=== PATIENT | male | born 1945 | race Caucasian/White ===

== ENCOUNTER 2016-08-15 14:57 | Inpatient (IN) ==
--- NOTE | 2016-08-15 15:44 | Emergency Department Note ---
Disposition Clinical Impression: Pericardial effusion Disposition: Admitted As Inpatient Condition: Good General Adult HPI - General Chief complaint: ED Arrhythmia/Palpitations Stated complaint: AICD acting funny Time Seen by Provider: 08/15/16 15:07 Source: patient, EMS Mode of arrival: EMS Limitations: no limitations Nursing Notes Reviewed: Yes Vital Signs Reviewed: Yes - History of Present Illness HPI Narrative: 71-year-old male history of CHF, CAD, AICD placement in June 2015, hypertension who presents to the ER from his primary care provider for waking. Patient reports that he has had a 5 pound weight gain over the last week. He denies any symptoms at home including chest pain, shortness of breath, palpitations, lightheadedness or dizziness. He was seen at his PCP today where they ordered a stat echo, chest x-ray and labs. Patient was sent over after this. He is not sure why he was sent over. He reports compliance with his medications. No other complaints. Pt Subjective Complaint: Pericardial effusion Onset (ago): [employer] Radiation: non-radiation Pain Scale: 0 Improves with: nothing Worsens with: nothing Associated symptoms: Reports: denies other symptoms Treatments Prior to Arrival: none - Related Data Home Medications Medication Instructions Recorded Confirmed Apixaban [Eliquis] 5 mg PO BID 08/15/16 08/15/16 Carbamide Peroxide [Ear Wax Drops] 4 drop BOTH EARS DAILY 08/15/16 08/15/16 Cholecalciferol (D-3) [Vitamin D] 1,000 unit PO DAILY 08/15/16 08/15/16 Furosemide [Lasix] 60 mg PO DAILY 08/15/16 08/15/16 Gabapentin [Neurontin] 300 mg PO TID 08/15/16 08/15/16 GlipiZIDE [Glipizide] 10 mg PO BID 08/15/16 08/15/16 Insulin Glargine,Hum.rec.anlog 15 unit SQ HS 08/15/16 08/15/16 [Lantus Solostar] Metformin HCl [Glucophage] 1,000 mg PO BID 08/15/16 08/15/16 Methocarbamol [Robaxin] 500 mg PO QID PRN 08/15/16 08/15/16 Metoprolol XL (24 HR) Succ [Toprol 25 mg PO DAILY 08/15/16 08/15/16 XL] Mineral Oil/Petrolatum,White 1 appl TP BID PRN 08/15/16 08/15/16 [Eucerin Creme] Ramipril [Altace] 5 mg PO DAILY 08/15/16 08/15/16 Rosuvastatin [Crestor] 10 mg PO HS 08/15/16 08/15/16 Spironolactone [Aldactone] 25 mg PO DAILY 08/15/16 08/15/16 Allergies Allergy/AdvReac Type Severity Reaction Status Date / Time No Known Allergies Allergy Verified 08/15/16 15:08 All systems ED: reviewed and negative except as stated. Constitutional: Denies: fever Cardiovascular: Denies: chest pain, palpitations Respiratory: Denies: cough, dyspnea Gastrointestinal: Denies: abdominal pain, nausea, vomiting Past Medical History - Past Medical History Attestation: Yes The following information was validated with the patient. Source: patient Medical history: Reports: atrial fibrillation, CHF, coronary artery disease, diabetes, hypertension, myocardial infarction Surgical history: Reports: AICD, pacemaker Psychiatric history: Reports: anxiety, panic disorder, PTSD - Social History Smoking Status: Former smoker Physical Exam - General Limitations: no limitations General appearance: alert, in no apparent distress - Head Head exam: atraumatic, normocephalic, normal inspection - Eye Eye exam: Present: normal appearance, EOMI - ENT ENT exam: normal exam - Neck Neck exam: Present: normal inspection - Chest Chest inspection: Present: normal inspection, symmetric chest wall rise - Respiratory Respiratory exam: Present: normal lung sounds bilaterally - Cardiovascular Cardiovascular exam: Present: regular rate, normal rhythm, normal heart sounds - Abdominal Exam Abdominal exam: Present: soft, Non-Tender. Absent: tenderness - Extremities Exam Extremities exam: Present: normal inspection, full ROM - Expanded Upper Extremity Exam Shoulder exam: Present: normal inspection, full ROM Arm exam: Present: normal inspection, full ROM Elbow exam: Present: normal inspection, full ROM Forearm/Wrist exam: Present: normal inspection, full ROM Hand exam: Present: normal inspection, full ROM - Expanded Lower Extremity Exam Hip/Pelvis exam: Present: normal inspection, full ROM Upper leg exam: Present: normal inspection, full ROM Knee exam: Present: normal inspection, full ROM Lower leg exam: Present: normal inspection, full ROM Ankle exam: Present: normal inspection, full ROM Foot/toe exam: Present: normal inspection, full ROM - Neurological Exam Neurological exam: Present: alert - Psychiatric Psychiatric exam: Present: normal affect, normal mood - Skin Skin exam: Present: warm, dry, intact, normal color Course Course Narrative: Patient seen and examined. Vital signs reviewed. I reviewed [facility] which shows a large pericardial effusion but no sonographic evidence of tamponade. This appears new from his previous echo performed on 06/17. We will discuss with the patient's fireproof door maker for further recommendation and possible transfer. She is hemodynamically stable. - Consultations Consultation #1: I spoke with the patient's fireproof door maker at [facility], Dr. Joe. They report that the patient did not have an effusion when he was discharged from their facility. They report that they do not have interventional radiology there if he would require pericardiocentesis. They recommended admission to the hospital for serial echoes and IV diuresis with the potential need for pericardiocentesis. He gave me his personal cell phone number and requests he may be reached at any time if needed. Personal cell [phone] 1calendar [phone] Consultation #2: I spoke with the on-call fireproof door maker Dr. Cm who agrees with admission to the hospital for serial echoes. He reports a hold all diuretic medications as well as antihypertensives given the patient's findings until he can repeat an echo. Reports to admit to medicine. Vital Signs Temperature 98.0 F 08/15/16 15:02 Pulse Rate 80 08/15/16 15:02 Respiratory Rate 16 08/15/16 15:02 Blood Pressure 175/109 08/15/16 15:02 O2 Sat by Pulse Oximetry 96 08/15/16 15:02 Temperature 97.9 F 08/17/16 07:12 Pulse Rate 80 08/17/16 07:12 Respiratory Rate 16 08/17/16 07:12 Blood Pressure 123/75 08/17/16 07:12 O2 Sat by Pulse Oximetry 95 08/17/16 07:45 Oxygen Delivery Oxygen Delivery Room Air Medical Decision Making - MDM Narrative Medical decision making narrative: 71-year-old male presents to the ER after abnormal echo at his PCP. Reports a history of CHF but has had a 5 pound weight gain over the last week. He is compliant with his Lasix. He denies any symptoms and feels his usual self.. Hemodynamically stable. Echo reviewed which shows a large pericardial effusion with EF of 35-40%. Case was discussed with the patient's fireproof door maker at [facility] as well as cardiology here. Recommends to admit to the hospitalist for further management and they will see him in consult. Patient admitted to the hospitalist service. - Lab Data Lab results reviewed: Yes I reviewed the patient's lab results. Result diagrams: 08/17/16 05:51 08/17/16 05:51 Lab Results 08/15/16 08/15/16 08/15/16 Range/Units 17:35 17:35 17:35 WBC 6.5 (4.3-11.1) K/mcL RBC 4.73 (4.19-5.50) M/mcL Hgb 12.3 L (12.9-16.9) g/dL Hct 39.8 (37.5-50.1) % MCV 84.1 (83.0-100.0) fL MCH 26.0 L (28.0-33.3) pg MCHC 30.9 L (31.6-35.5) g/dL RDW 15.1 H (11.5-14.5) % Plt Count 174 (140-400) K/mcL MPV 9.8 (9.4-12.4) fL Immature Gran % 0.8 (0-4) % Seg Neutrophils % 63.8 % Lymphocytes % 26.0 % Monocytes % 7.8 % Eosinophils % 1.4 % Basophils % 0.2 % Neutrophils # 4.2 (1.6-8.9) K/mcL Lymphocytes # 1.7 (0.6-4.6) K/mcL Monocytes # 0.5 (0.0-1.3) K/mcL Eosinophils # 0.1 (0.0-0.6) K/mcL Basophils # 0.0 (0.0-0.2) K/mcL Sodium 141 (136-145) mEq/L Potassium 4.7 H (3.5-4.5) mEq/L Chloride 99 (98-109) mEq/L Carbon Dioxide 32 H (19-29) mEq/L BUN 32 H (8-26) mg/dL Creatinine 1.32 H (0.72-1.25) mg/dL Est GFR ( Amer) > 60 (> 60) Est GFR (Non-Af Amer) 54 L (> 60) BUN/Creatinine Ratio 24 (6-26) Glucose 105 H (70-99) mg/dL POC Glucose (58-89) Calculated Osmolality 299 (280-300) Calcium 10.2 (8.6-10.8) mg/dL Phosphorus (2.3-4.7) mg/dL Magnesium (1.6-2.6) mg/dL Creatine Kinase 109 (30-200) Units/L Troponin I 0.02 (0-0.03) ng/mL B-Natriuretic Peptide (0-100) pg/mL 08/15/16 08/15/16 08/15/16 Range/Units 17:35 17:40 20:38 WBC (4.3-11.1) K/mcL RBC (4.19-5.50) M/mcL Hgb (12.9-16.9) g/dL Hct (37.5-50.1) % MCV (83.0-100.0) fL MCH (28.0-33.3) pg MCHC (31.6-35.5) g/dL RDW (11.5-14.5) % Plt Count (140-400) K/mcL MPV (9.4-12.4) fL Immature Gran % (0-4) % Seg Neutrophils % % Lymphocytes % % Monocytes % % Eosinophils % % Basophils % % Neutrophils # (1.6-8.9) K/mcL Lymphocytes # (0.6-4.6) K/mcL Monocytes # (0.0-1.3) K/mcL Eosinophils # (0.0-0.6) K/mcL Basophils # (0.0-0.2) K/mcL Sodium (136-145) mEq/L Potassium (3.5-4.5) mEq/L Chloride (98-109) mEq/L Carbon Dioxide (19-29) mEq/L BUN (8-26) mg/dL Creatinine (0.72-1.25) mg/dL Est GFR ( Amer) (> 60) Est GFR (Non-Af Amer) (> 60) BUN/Creatinine Ratio (6-26) Glucose (70-99) mg/dL POC Glucose 108 H 98 H (58-89) Calculated Osmolality (280-300) Calcium (8.6-10.8) mg/dL Phosphorus (2.3-4.7) mg/dL Magnesium (1.6-2.6) mg/dL Creatine Kinase (30-200) Units/L Troponin I (0-0.03) ng/mL B-Natriuretic Peptide 143 H (0-100) pg/mL 08/16/16 08/16/16 08/16/16 Range/Units 04:15 04:15 08:11 WBC 7.3 (4.3-11.1) K/mcL RBC 4.65 (4.19-5.50) M/mcL Hgb 12.1 L (12.9-16.9) g/dL Hct 39.1 (37.5-50.1) % MCV 84.1 (83.0-100.0) fL MCH 26.0 L (28.0-33.3) pg MCHC 30.9 L (31.6-35.5) g/dL RDW 15.2 H (11.5-14.5) % Plt Count 172 (140-400) K/mcL MPV 9.9 (9.4-12.4) fL Immature Gran % 0.7 (0-4) % Seg Neutrophils % 63.7 % Lymphocytes % 25.6 % Monocytes % 8.7 % Eosinophils % 1.2 % Basophils % 0.1 % Neutrophils # 4.6 (1.6-8.9) K/mcL Lymphocytes # 1.9 (0.6-4.6) K/mcL Monocytes # 0.6 (0.0-1.3) K/mcL Eosinophils # 0.1 (0.0-0.6) K/mcL Basophils # 0.0 (0.0-0.2) K/mcL Sodium 141 (136-145) mEq/L Potassium 4.1 (3.5-4.5) mEq/L Chloride 100 (98-109) mEq/L Carbon Dioxide 31 H (19-29) mEq/L BUN 31 H (8-26) mg/dL Creatinine 1.33 H (0.72-1.25) mg/dL Est GFR ( Amer) > 60 (> 60) Est GFR (Non-Af Amer) 53 L (> 60) BUN/Creatinine Ratio 23 (6-26) Glucose 56 L (70-99) mg/dL POC Glucose 93 H (58-89) Calculated Osmolality 296 (280-300) Calcium 10.1 (8.6-10.8) mg/dL Phosphorus 4.3 (2.3-4.7) mg/dL Magnesium 1.8 (1.6-2.6) mg/dL Creatine Kinase (30-200) Units/L Troponin I (0-0.03) ng/mL B-Natriuretic Peptide (0-100) pg/mL - Radiology Data Radiology results reviewed: Yes I reviewed the patient's radiology results. - EKG Data EKG #1 EKG attestation: Yes I reviewed and interpreted this EKG. EKG results narrative: EKG demonstrates a ventricularly paced rhythm with a rate of 80 bpm. Left axis deviation. QRS duration [address] elevations or depressions. No acute ischemic findings. S.B.A.R. - S.B.A.R. Situation: Demographics, MOA Background: Presenting Complaint, Relevant PMH, Meds, & Allergies Assessment: Vital Signs, Course and respsone to treatment, Exam Concerns, Patient/Family Expectation, Pertinant Lab Results, Outstanding Labs Recommendation: Barrier(s) to disposition, Recommendation based on pending studies, treatments, or consults S.B.A.R. Report Given to: Sridevi Blanco Attestation Statement - Attestation Attestation: I personally interviewed and examined this patient and my medical decision- making was reviewed with the ED Resident Physician, Dr. Granda. I agree with the documented findings, disposition and treatment plan as described except to the extent set forth below. Pt sent to the ED by his doctor's for an abnormal echo this morning, showing a new pericardial effusion. Pt arrives asymptomatic, VSS, has no complaints. Per pt, he has a home health monitoring system, [facility]. He was contacted due to concerns for approx 5 lb weight gain. [facility] requested [facility] come [facility] for [facility]. Pt seen this am, had abnormal CXR, showing enlarged cardiac silohette. They obtained echo, with no change in EF, but showing new pericaridal effusion. Confirmed at bedside by Dr. Granda using bedside ultrasound. Pt remains comfortable and asymptomatic. VSS throughout ED course. No abnormalities on EKG. Remainder of workup at [place] and [place] unremarkable. Il requesting admission to [place], as they do not have interventional cardaic services, in case pt would develop indication for invasive treatment. Pt admitted for further eval and treatment.
[2016-08-15 17:47] LABS: Basophils % 0.2 %; Eosinophils # 0.1 K/mcL (0.0-0.6); Eosinophils % 1.4 %; Hematocrit 39.8 % (37.5-50.1); Hemoglobin 12.3 g/dL (12.9-16.9); Immature Granulocytes % 0.8 % (0-4); Lymphocytes # 1.7 K/mcL (0.6-4.6); Mean Corpuscular HGB Conc 30.9 g/dL (31.6-35.5); Mean Corpuscular Volume 84.1 fL (83.0-100.0); Mean Platelet Volume 9.8 fL (9.4-12.4); Monocytes # 0.5 K/mcL (0.0-1.3); Monocytes % 7.8 %; Neutrophils # 4.2 K/mcL (1.6-8.9); Platelet Count 174 K/mcL (140-400); Red Blood Count 4.73 M/mcL (4.19-5.50); Red Cell Distribution Width 15.1 % (11.5-14.5); Segmented Neutrophils % 63.8 %
[2016-08-15 18:03] LABS: BUN/Creatinine Ratio 24 (6-26); Blood Urea Nitrogen 32 mg/dL (8-26); Calcium 10.2 mg/dL (8.6-10.8); Carbon Dioxide 32 mEq/L (19-29); Chloride 99 mEq/L (98-109); Creatine Kinase 109 Units/L (30-200); Glucose 105 mg/dL (70-99); Osmolality,Calculated 299 (280-300); Potassium 4.7 mEq/L (3.5-4.5); Sodium 141 mEq/L (136-145); eGFR For African Americans > 60 (> 60); eGFR For Non-African Americans 54 (> 60)
--- NOTE | 2016-08-15 19:22 | Cardiology Consult Note ---
Date of Encounter: 08/15/16 Time of Encounter: 19:17 Assessment and Plan (1) Pericardial effusion Current Visit: Yes Status: Acute Reported large pericardial effusion. Currently, patient asymptomatic with a stable BP. Recommend avoid PO maintenance diuretic for now. May need to consider IVFs if BP decreases. Check echocardiogram. Monitor hemodynamics. Recent device placement - per primary automatic print developer, lead impedances normal. Anticoagulation previously changed from Coumadin to Eliquis. No viral syndromes. Obtain records from [facility]. No immediate indication for pericardiocentesis. Patient is hemodynamically stable. Further recommendations pending results of above. (2) NICM (nonischemic cardiomyopathy) Current Visit: Yes Status: Acute NICMP ? etiology. Patient states present since . History of AF, ? tachycardia induced as well. Hold anti-hypertensives and diuretics for now given large pericardial effusion. Ideally, ACEi/BB/Aldactone therapy when able. (3) Cardiac resynchronization therapy defibrillator ([employer]) in place Current Visit: Yes Status: Acute [employer] placed in June. [employer] device. Will arrange for interrogation given development of large pericardial effusion. ? perforation. (4) Atrial fibrillation Current Visit: Yes Status: Acute Reports history of AF. Continue AC with Eliquis for now, but if concern for hemorrhagic effusion develops, will need to hold AC. Qualifiers: Atrial fibrillation type: unspecified Qualified Code(s): I48.91 - Unspecified atrial fibrillation Discussion w patient/family: The assessment and plan as outlined above was discussed with the patient and/or family members who expressed understanding and agreement. All questions were answered. Thank you for involving us in the care of your patient. Please call with any questions. History of Present Illness Consult date: 08/15/16 Requesting physician: Robin Grnada Consult reason: Pericardial effusion Chief complaint: None History of present illness: Mr. Thomson is a 71 year old male who was sent to ER by his primary automatic print developer at [facility]. Reports a long history of a cardimyopathy dating back to [place]. Reports a history of AF, currently on Eliquis. Prior MERLYN guided cardioversion attempted in June 2016. Patient reports he suffered an arrest and required extensive support. After stabilizing, he apparent had a LHC, which demonstrated nonobstructive CAD. Subsequent [employer] placed ([employer]). Today, [facility]. Patient otherwise asymptomatic. [facility] by [facility] - [facility]ogram reportedly demonstrated a large pericardial effusion. Per ER, primary automatic print developer said device recently checked and lead impedances were normal. Patient states he is in usual state of health - no orthopnea, no edema, no chest pain, no lightheadedness, etc. BP stable in ER. 120s/90s. HR 80, paced. Past Med Surg Social Fam HX - Past Medical History Medical history: atrial fibrillation, CHF, coronary artery disease, diabetes, hypertension, myocardial infarction Psychiatric history: anxiety, panic disorder, PTSD - Past Surgical History Surgical History: AICD, pacemaker - Social History Smoking Status: Former smoker Medications and Allergies Apixaban [Eliquis] 5 mg PO BID 08/15/16 [History] Carbamide Peroxide [Ear Wax Drops] 4 drop BOTH EARS DAILY 08/15/16 [History] Cholecalciferol (D-3) [Vitamin D] 1,000 unit PO DAILY 08/15/16 [History] Furosemide [Lasix] 60 mg PO DAILY 08/15/16 [History] Gabapentin [Neurontin] 300 mg PO TID 08/15/16 [History] GlipiZIDE [Glipizide] 10 mg PO BID 08/15/16 [History] Insulin Glargine,Hum.rec.anlog [Lantus Solostar] 15 unit SQ HS 08/15/16 [History ] Metformin HCl [Glucophage] 1,000 mg PO BID 08/15/16 [History] Methocarbamol [Robaxin] 500 mg PO QID PRN 08/15/16 [History] Metoprolol XL (24 HR) Succ [Toprol XL] 25 mg PO DAILY 08/15/16 [History] Mineral Oil/Petrolatum,White [Eucerin Creme] 1 appl TP BID PRN 08/15/16 [History ] Ramipril [Altace] 5 mg PO DAILY 08/15/16 [History] Rosuvastatin [Crestor] 10 mg PO HS 08/15/16 [History] Spironolactone [Aldactone] 25 mg PO DAILY 08/15/16 [History] Allergies No Known Allergies Allergy (Verified 08/15/16 15:08) All Systems Review: A 10-system review of systems was performed and is negative for pertinent findings except as documented above in the HPI. - Cardiovascular Cardiovascular: as per HPI Physical Examination Vital Signs, Last 4 Hours Pulse Resp BP Pulse Ox 08/15/16 19:11 78 16 126/92 94 General: Conversant, No Apparent Distress HEENT: Atraumatic, Normocephaly, Mucus Membranes Moist Neck: No JVD, Normal carotid pulses Cardiac: Reg Rate and Rhythm, Normal S1 and S2, No Murmur Lungs: Normal Breath Sounds, No Wheeze, Rales, Rhonchi, Other Neuro: Alert and responsive, No focal deficits noted Abdomen: Soft, Non-Tender, Other (obese, hernia) Skin: No rashes noted on visualized skin Musculoskeletal: No Chest Wall Tenderness Extremities: No Clubbing, No Cyanosis, Other ( minimal edema) Results 08/15/16 17:35 08/15/16 17:35 Consult Discharge Plan - Plan [facility]errals: [facility] [Primary Care Provider[facility] -
--- NOTE | 2016-08-15 21:18 | Internal Med History&Physical ---
<Abhay Aguero - Last Filed: 08/15/16 22:46> Date of Encounter: 08/15/16 Time of Encounter: 20:30 Assessment and Plan (1) Pericardial effusion Current visit: Yes Status: Acute Large Pericardial effusion found CA, new from prior cardiac workup in 06/27. No evidence of tamponade or of hemodynamic compromise currently. Recent FILLER SHREDDING MACHINE LOADER-D placed in 06/27, prior cardiac catheterization in 06/27. Etiology of pericardial effusion unclear at the moment, no recent illnesses, no sick contacts, though patient did have recent cardiac procedure (FILLER SHREDDING MACHINE LOADER-D placed) there is some concern this could be hemorrhagic in nature Patient currently asymptomatic, no concerns/complaints this time. No hemodynamic compromise noted Cardiology is following appreciate continued recommendations regarding patient management/care Will hold patient diuretics Echocardiogram performed this evening per cardiology Patient placed on telemetry and continuous pulse oximetry Frequent vital checks to assess for developing hypertension Frequency of echocardiograms per cardiology Consider pericardiocentesis for diagnostic and therapeutic purposes We will monitor closely for hemodynamic instability for need of emergent pericardiocentesis (2) NICM (nonischemic cardiomyopathy) Current visit: Yes Status: Acute Echo performed on 08/15/16 at the [place] showed ejection fraction of 35-45% which is increased from prior echocardiogram in 06/27. Patient on metoprolol, Aldactone, Lasix, and ramipril at home. Will hold all antihypertensive and diuretics for now per cardiology recommendations, given concerns of hypotension We will restart when able (3) Renal insufficiency Current visit: Yes Status: Acute Mild elevation in serum creatinine seen at 1.32, BUN 32. Unsure of patient baseline, though history of diabetes with suggest chronic kidney disease, patient also taking Lasix and BUN to creatinine ratio does suggest prerenal cause. Possible patient dehydrated from diuresis. We will avoid nephrotoxic agents if possible We will continue to trend kidney function with daily labs Patient home Lasix held due to pericardial effusion, can consider trial of light fluids, but will hold for now We will hold patient ramipril (4) Atrial fibrillation Current visit: Yes Status: Acute Patient reports history of Atrial fibrillation, heart rhythm ventricularly paced and patient on apixaban for anticoagulation Will continue apixaban for now Qualifiers: Atrial fibrillation type: unspecified Qualified Code(s): I48.91 - Unspecified atrial fibrillation (5) DVT prophylaxis Current visit: Yes Status: Acute Patient on apixaban for his atrial fibrillation We will continue home anticoagulation for now, but pericardial effusion hemorrhagic in nature we will stop anticoagulation (6) Cardiac resynchronization therapy defibrillator (FILLER SHREDDING MACHINE LOADER-D) in place Current visit: Yes Status: Acute Internal Medicine - H&P: HPI Chief complaint: Pericardial Effusion Admitted From: Home Plans for Post Hospital Care: Home History of present illness: Mr. Thomson is a 71 year old male with prior medical history of atrial fibrillation, congestive heart failure (last EF 35-45%), coronary artery disease with prior heart attack, diabetes mellitus, hypertension, pulmonary nodules, who recently had a FILLER SHREDDING MACHINE LOADER-D placed (06/27) was sent to [place] from the [place] due to concerns of a large pericardial effusion that was found on echo. He had presented to the [place] originally after being told by his "Health Bobby" (someone that calls to help him keep track of his weight and help guide treatment for CHF ) to return the hospital due to a 5 pound weight gain, an echo was performed and a large pericardial effusion found. This pericardial effusion was new since having extensive cardiac workup done in 06/27. He has no complaints at this time and denies any shortness of breath, chest pain, orthopnea, back pain, abdominal pain, lightheadedness, dizziness, syncope, fever/chills. He had undergone catheterization in 06/27 (no stents placed that time), but was found to have atrial fibrillation. A MERLYN guided electrical cardioversion was performed. In the course of his treatment he suffered a cardiac arrest, resuscitation attempt was successful (obviously), though he did end up with a cardiac resynchronization device and defibrillator. Past Med Surg Social Fam HX - Past Medical History Source: patient, old records reviewed, obtained from family Medical history: atrial fibrillation, CHF (EF 08/15/16 = 35-45%), coronary artery disease, diabetes, hypertension, myocardial infarction, other (Colonic Polyps) Psychiatric history: anxiety, panic disorder, PTSD - Past Surgical History Surgical History: colectomy (Right side due to colonic polyps), AICD, pacemaker (FILLER SHREDDING MACHINE LOADER-D) - Social History Smoking Status: Former smoker (Quit 28 years ago, 42 ppd prior to quitting) Packs per day: 2 Smokeless Tobacco Status: No Alcohol use: none Drug use: none Occupational status: retired Current living situation: Home - Independent Activity Level: Independent ambulation Internal Medicine - H&P: Meds Apixaban [Eliquis] 5 mg PO BID 08/15/16 [History] Carbamide Peroxide [Ear Wax Drops] 4 drop BOTH EARS DAILY 08/15/16 [History] Cholecalciferol (D-3) [Vitamin D] 1,000 unit PO DAILY 08/15/16 [History] Furosemide [Lasix] 60 mg PO DAILY 08/15/16 [History] Gabapentin [Neurontin] 300 mg PO TID 08/15/16 [History] GlipiZIDE [Glipizide] 10 mg PO BID 08/15/16 [History] Insulin Glargine,Hum.rec.anlog [Lantus Solostar] 15 unit SQ HS 08/15/16 [History ] Metformin HCl [Glucophage] 1,000 mg PO BID 08/15/16 [History] Methocarbamol [Robaxin] 500 mg PO QID PRN 08/15/16 [History] Metoprolol XL (24 HR) Succ [Toprol XL] 25 mg PO DAILY 08/15/16 [History] Mineral Oil/Petrolatum,White [Eucerin Creme] 1 appl TP BID PRN 08/15/16 [History ] Ramipril [Altace] 5 mg PO DAILY 08/15/16 [History] Rosuvastatin [Crestor] 10 mg PO HS 08/15/16 [History] Spironolactone [Aldactone] 25 mg PO DAILY 08/15/16 [History] Allergies No Known Allergies Allergy (Verified 08/15/16 15:08) - Constitutional Constitutional: weight gain, no chills, no fever(s), no night sweats, no weakness - EENT Eyes: no change in vision, no pain Nose, mouth and throat: post-nasal drip (At night), no dysphagia, no nasal discharge, no neck pain, no sore throat - Cardiovascular Cardiovascular ROS IM: no chest pain, no diaphoresis, no dyspnea, no edema, no lightheadedness, no orthopnea, no palpitations, no syncope - Respiratory Respiratory: no cough, no dyspnea, no hemoptysis, no wheezing, no pain on inspiration, no excessive phlegm production - Gastrointestinal Gastrointestinal: no abdominal pain, no constipation, no diarrhea, no hematemesis, no hematochezia, no melena, no nausea, no vomiting - Genitourinary Genitourinary ROS male: no dysuria, no hematuria - Musculoskeletal Musculoskeletal ROS IM: numbness (Bilateral toe pads, chronic neuropathy from diabetes), no tingling - Integumentary Integumentary IM: no rash, no unusual bruising - Neurological Neurological ROS: numbness, no confusion, no convulsions, no dizziness, no focal weakness, no tingling, no tremor(s), no weakness - Constitutional Vitals: Temp Pulse Resp BP Pulse Ox 97.6 F 77 18 129/94 96 08/15/16 20:31 08/15/16 20:31 08/15/16 20:31 08/15/16 20:31 08/15/16 20:31 Exam: General: Cooperative, pleasant, no acute distress, alert and oriented 3, answers questions appropriately Head: Normocephalic, atraumatic Eye: Conjunctiva pink, sclera anicteric, EOMI, pupils different sizes (chronic, normal for him), pupils reactive to light bilaterally Neck: Supple, trachea midline, mucosa moist, no erythema or exudates noted in oropharynx, no JVD appreciated Respiratory: No accessory muscle usage, clear to auscultation bilaterally, no wheezes/rhonchi/rales appreciated Cardiovascular: Regular rate and rhythm, S1 and S2 present, no murmurs/rubs/ gallops/clicks appreciated GI/abdominal: Nondistended, nontender, soft, normal bowel sounds, no peritoneal signs, diastases present Extremities: No calf tenderness, noncyanotic, mild pedal edema appreciated, warm , lower extremity pulses palpable and symmetrical Neurological: Alert and oriented 3, no facial droop, no focal deficits Skin: Dry, intact, normal color Internal Med - H&P Results - Labs CBC & Chem 7: 08/15/16 17:35 08/15/16 17:35 - EKG Data -: EKG Interpreted by Myself Rate: normal - EKG Data Prior EKG available for review: no EKG comments: 08/15/16 21:53 Paced rhythm, regular, QRS 173, no ST elevations or depressions, no evidence of acute ischemic change - Impressions ITS Impressions Chest X-Ray 08/15/16 19:31 IMPRESSION: Severely enlarged cardiac silhouette. D/ / Endy Andrade MD / Endy Andrade MD Interpreting Provider: Endy Andrade MD <Ronn Wheeler - Last Filed: 08/15/16 23:44> Date of Encounter: 08/15/16 Internal Medicine - H&P: HPI History of present illness: Mr. Thomson is a 71 year old male All Systems PM: A 10-system review of systems was performed and is negative for pertinent findings except as documented above in the HPI. - Constitutional Vitals: Temp Pulse Resp BP Pulse Ox 97.6 F 77 18 129/94 96 08/15/16 20:31 08/15/16 20:31 08/15/16 20:31 08/15/16 20:31 08/15/16 20:31 Internal Med - H&P Results - Labs CBC & Chem 7: 08/15/16 17:35 08/15/16 17:35 - Impressions ITS Impressions Chest X-Ray 08/15/16 19:31 IMPRESSION: Severely enlarged cardiac silhouette. D/ / Endy Andrade MD / Endy Andrade MD Interpreting Provider: Endy Andrade MD - Attending Attestation I examined this patient and my medical decision-making was reviewed with the GROUNDWATER MONITORING TECHNICIAN/PA/Advanced Practice Nurse/Resident Physician. I agree with the documented findings, disposition and treatment plan as described except to the extent set forth below.
[2016-08-15] MEDS ORDERED: Ondansetron ODT 4 MG TAB.RAPDIS SL PRN (21:20)
[2016-08-15] MEDS ORDERED: Dextrose Gel 15 GM PO PRN ×2 (21:20)
[2016-08-15] MEDS ORDERED: Acetaminophen 325 MG TABLET PO PRN (21:20)
[2016-08-15] MEDS ORDERED: *HR* Dextrose 50 % in Water (Syg) 50 ML SYRINGE IVP PRN (21:20)
[2016-08-15] MEDS ORDERED: Ibuprofen 400 MG TABLET PO PRN (21:20)
[2016-08-15] MEDS ORDERED: D5% in Water 1,000 ML IVC PRN (21:20)
[2016-08-15] MEDS ORDERED: Naloxone 0.4 MG/ML INJ IVP PRN (21:20)
[2016-08-15] MEDS ORDERED: Methocarbamol 500 MG TABLET PO PRN (21:26)
[2016-08-15] MEDS: Insulin DETEMIR 100 UNIT/ML X5UNITS SQ SCH (22:13)
[2016-08-16] MEDS ORDERED: Sennosides/Docusate Sodium TABLET PO PRN (01:11)
[2016-08-16 04:43] LABS: Basophils % 0.1 %; Eosinophils # 0.1 K/mcL (0.0-0.6); Eosinophils % 1.2 %; Hematocrit 39.1 % (37.5-50.1); Hemoglobin 12.1 g/dL (12.9-16.9); Immature Granulocytes % 0.7 % (0-4); Lymphocytes # 1.9 K/mcL (0.6-4.6); Lymphocytes % 25.6 %; Mean Corpuscular HGB Conc 30.9 g/dL (31.6-35.5); Mean Corpuscular Volume 84.1 fL (83.0-100.0); Mean Platelet Volume 9.9 fL (9.4-12.4); Monocytes # 0.6 K/mcL (0.0-1.3); Monocytes % 8.7 %; Neutrophils # 4.6 K/mcL (1.6-8.9); Platelet Count 172 K/mcL (140-400); Red Blood Count 4.65 M/mcL (4.19-5.50); Red Cell Distribution Width 15.2 % (11.5-14.5); Segmented Neutrophils % 63.7 %
[2016-08-16 04:57] LABS: BUN/Creatinine Ratio 23 (6-26); Blood Urea Nitrogen 31 mg/dL (8-26); Calcium 10.1 mg/dL (8.6-10.8); Carbon Dioxide 31 mEq/L (19-29); Chloride 100 mEq/L (98-109); Glucose 56 mg/dL (70-99); Magnesium 1.8 mg/dL (1.6-2.6); Osmolality,Calculated 296 (280-300); Phosphorous 4.3 mg/dL (2.3-4.7); Potassium 4.1 mEq/L (3.5-4.5); Sodium 141 mEq/L (136-145); eGFR For African Americans > 60 (> 60); eGFR For Non-African Americans 53 (> 60)
[2016-08-16] MEDS: Gabapentin 300 MG CAPSULE PO SCH ×3 (08:07→21:17)
[2016-08-16] MEDS: Cholecalciferol (D-3) 1,000 UNIT TABLET PO SCH (08:07)
[2016-08-16] MEDS: Insulin LISPRO 300 UNITS/3 ML VIAL SQ SCH ×4 (08:12→21:18)
[2016-08-16] MEDS ORDERED: APIXABAN 5 MG TABLET PO SCH (09:00)
--- NOTE | 2016-08-16 09:23 | ECHO - Doppler Report ---
Echocardiogram Name: Krishna Thomson Date of Study: 08/15/2016 Date: 1945 Ht: 69.0 in Medical Record#: [id number] Age: 71 Wt: 249.0 lb Gender: Male BSA: 2.27 Order #: [id number] [facility] Room #: [id number] Reading Physician: Endy Cm DO, FACC, FASE Rn Nicu: Myrtle Cervantes RDCS Ordering Physician: Endy Cm DO, FACC, FASE Primary Physician: [facility] Indications: Pericarditis/Pericardial Effusion/Tamponade, NICMP Impressions: LVEF 25-30%. Moderate to severely dilated left ventricle. Severe global left ventricular systolic dysfunction. Mild concentric left ventricular hypertrophy. Indeterminate diastolic function. Atypical septal motion consistent with paced rhythm. Moderately dilated right ventricle with at least mild hypokinesis. Severe biatrial enlargement. No evidence of pulmonary hypertension. There is a large pericardial effusion present. There is no echocardiographic evidence of tamponade. A device lead was visualized in the right atrium and right ventricle. No obvious evidence of lead perforation. Left Ventricular Wall Motion: Rest Echo Findings The apex, apical inferior, mid inferior, basal inferior, apical anterior, mid anterior, basal anterior, apical septal, mid inferior septal, basal inferior septal, apical lateral, mid anterior lateral, basal anterior lateral, mid anterior septal, mid inferior lateral, basal anterior septal and basal inferior lateral graham were hypokinetic. Findings: Study Quality * Technically sub-optimal due to poor echocardiographic windows. ECG Findings * Paced rhythm. Left Ventricle * LVEF 25-30%. * Moderate to severely dilated left ventricle. * Severe global left ventricular systolic dysfunction. * Mild concentric left ventricular hypertrophy. * Indeterminate diastolic function. * Atypical septal motion consistent with paced rhythm. Right Ventricle * Moderately dilated right ventricle. * Mild right ventricular hypokinesis. Left Atrium * Severely dilated left atrium. Right Atrium * Severely dilated right atrium. Interatrial Septum * Interatrial septum not well evaluated. Aortic Valve * Aortic valve not well visualized. * No aortic stenosis. * No aortic regurgitation. Mitral Valve * Normal mitral valve structure. * Mild mitral regurgitation. * No mitral stenosis. Tricuspid Valve * Normal tricuspid valve structure and function. * Trace tricuspid regurgitation. * No evidence of pulmonary hypertension. Pulmonic Valve * Normal pulmonic valve structure and function. * No pulmonic regurgitation. Aorta * Normally sized aortic root. Pericardium * There is a large pericardial effusion present. * There is no echocardiographic evidence of tamponade. IVC * Normal IVC dimensions and inspiratory collapse. Device lead * A device lead was visualized in the right atrium and right ventricle. Pulmonary Artery * Normal visualized portions of the main pulmonary artery. History Hypertension Diabetes History of CAD/PTCA Myocardial Infarction Congestive Heart Failure Pacer/ICD Implant Measurements: BP: 126/ 92 2D Normal Values RVIDd: 3.20 cm <2.7 cm IVSd: 1.30 cm 0.6 - 1.0 cm LVIDd: 6.80 cm 3.7 - 5.6 cm LVPWd: 1.30 cm 0.6 - 1.1 cm LVIDs: 4.02 cm 1.5 - 3.6 cm AO: 2.80 cm < 4.0 cm LA: 4.20 cm 2.0 - 4.0cm %FS: 42.10 cm >25 % LA volume: 106 Mitral Valve Peak E:1.33 m/sec Peak A:.80 m/sec E/A Ratio:1.7 Peak E' Lat John:8.49 cm/s Peak E' Med John:8.38 cm/s E/E' Lat Ratio:14.7 E/E' Med Ratio:14.9 Tricuspid Valve TV Regurg Peak Grad: 15.00mmHg TV Regurg Peak John: 1.91m/sec Updated by Endy Cm DO, SHAI, ROLA, ROSALINDA on 08/16/2016 9:15:26 AM electronically signed on 08/16/2016 9:18:01 AM with status of Final Wall Motion Ruiz: 1=Normal, 2=Hypokinesis, 3=Akinesis, 4=Dyskinesis, 5=Aneurysmal, 6=Hyperkinetic, X=Not Visualized (Blank)=Missing
--- NOTE | 2016-08-16 10:54 | Cardiothoracic Consult Note ---
Date of Encounter: 08/16/16 Time of Encounter: 10:53 Assessment and Plan (1) Pericardial effusion Current Visit: Yes Status: Acute Then patient is a 71-year-old type II diabetic, hypertensive man with cardiomyopathy who was transferred to [facility] for evaluation of a large pericardial effusion without tamponade. The patient also has a history of cardiac arrest during sedation per the patient and 's statements. He is currently on Eliquis for atrial fibrillation anticoagulation therapy. This will need to be stopped for 2-3 days prior to any procedure. Options for this patient's pericardial effusion treatment include percutaneous pericardiocentesis in the cardiac catheterization lab, subxiphoid pericardial window in the operating room, or serial echocardiograms to evaluate the effusion. In discussing the case with Dr. Endy Cm, we both believe that the pericardial effusion should be drained. We will speak with the room cooler installer on Thursday to discuss possible percutaneous pericardiocentesis. If this is not possible, I would then perform a subxiphoid pericardial window. The patient and his family or wear of the increased risk due to his previous history of difficulty with sedation. The assessment and plan as outlined above was discussed with the patient and/or family members who expressed understanding and agreement. All questions were answered. - History of Present Illness Consult date: 08/16/16 Requesting physician: Endy Cm Consult reason: Pericardial effusion evaluation. Chief complaint: Shortness of breath, weight gain. History of present illness: Mr. Thomson is a 71 year old type II diabetic, hypertensive man with cardiomyopathy who was transferred to [facility] from [facility] with diagnosis of congestive heart failure. The patient has a history of congestive heart failure which she states dates back to the 1970s when he was in [place]. The patient did well until 2008 when he had an acute episode of acute CHF. He was treated medically and did fairly well until He states that the hypotension occurs each time he is sedated, occurring during his colonoscopy as well as a subsequent right hemicolectomy. During the last year he has had a gradual decline in his health and has been unable to ambulate without experiencing profound shortness of breath and dyspnea on exertion. He was found to have atrial fibrillation and underwent attempted MERLYN guided cardioversion in June 2016. During the sedation portion of the procedure the patient had hypotension and required aggressive resuscitation. Accordingly Subsequently he underwent LHC which showed nonobstructive CAD. He then underwent FRAME GATE MORTISER OPERATOR-D placement and states that he has done very well during the last month. He is able to ambulate without much difficulty and expresses no shortness of breath or dyspnea on exertion. [facility] and the patient was recommended for evaluation. An echocardiogram showed a large pericardial effusion without evidence of tamponade and his primary muskrat trapper [facility] recommended that he be transferred to [facility] for further evaluation. I have been asked to evaluate the patient for possible subxiphoid pericardial window. Past Med Surg Social Fam HX - Past Medical History Medical history: atrial fibrillation, cardiomyopathy, CHF (EF 08/15/16 = 35-45%), coronary artery disease (Nonobstructive.), diabetes, hyperlipidemia, hypertension, myocardial infarction, renal disease (Stage IIIa), other (Colonic Polyps) Psychiatric history: anxiety, panic disorder, PTSD - Past Surgical History Surgical History: colectomy (Right side due to colonic polyps), AICD, pacemaker (FRAME GATE MORTISER OPERATOR-D) - Social History Smoking Status: Former smoker (Quit 28 years ago, 42 ppd prior to quitting) Packs per day: 2 Smokeless Tobacco Status: No Alcohol use: none Drug use: none Occupational status: retired Current living situation: Home - Independent Activity Level: Independent ambulation Recent Out of Country Travel Within the Last 8 Weeks: No Exposure or Possible Exposure to Illness During Travel: No Medications and Allergies Apixaban [Eliquis] 5 mg PO BID 08/15/16 [History] Carbamide Peroxide [Ear Wax Drops] 4 drop BOTH EARS DAILY 08/15/16 [History] Cholecalciferol (D-3) [Vitamin D] 1,000 unit PO DAILY 08/15/16 [History] Furosemide [Lasix] 60 mg PO DAILY 08/15/16 [History] Gabapentin [Neurontin] 300 mg PO TID 08/15/16 [History] GlipiZIDE [Glipizide] 10 mg PO BID 08/15/16 [History] Insulin Glargine,Hum.rec.anlog [Lantus Solostar] 15 unit SQ HS 08/15/16 [History ] Metformin HCl [Glucophage] 1,000 mg PO BID 08/15/16 [History] Methocarbamol [Robaxin] 500 mg PO QID PRN 08/15/16 [History] Metoprolol XL (24 HR) Succ [Toprol XL] 25 mg PO DAILY 08/15/16 [History] Mineral Oil/Petrolatum,White [Eucerin Creme] 1 appl TP BID PRN 08/15/16 [History ] Ramipril [Altace] 5 mg PO DAILY 08/15/16 [History] Rosuvastatin [Crestor] 10 mg PO HS 08/15/16 [History] Spironolactone [Aldactone] 25 mg PO DAILY 08/15/16 [History] Allergies No Known Allergies Allergy (Verified 08/15/16 15:08) All Systems Review: A 10-system review of systems was performed and is negative for pertinent findings except as documented above in the HPI. Physical Examination General: Conversant, No Apparent Distress HEENT: Atraumatic, Normocephaly, Trachea midline Neck: No JVD, Normal carotid pulses Cardiac: Reg Rate and Rhythm, Normal S1 and S2, No Murmur Lungs: Normal Breath Sounds, No Wheeze, Rales, Rhonchi Neuro: Alert and responsive, No focal deficits noted Vascular: Normal capillary refill Abdomen: Soft, Non-tender Skin: No rashes noted on visualized skin Musculoskeletal: No Chest Wall Tenderness Extremities: No Clubbing, No Cyanosis, No Edema Results 08/16/16 04:15 08/16/16 04:15 - Imaging Chest Xray: image reviewed (Severe cardiac enlargement. No pneumothorax.) Consult Discharge Plan - Plan [facility]errals: [facility] [Primary Care Provider] -
--- NOTE | 2016-08-16 11:33 | Cardiology Progress Note ---
Date of Encounter: 08/16/16 Time of Encounter: 11:31 Assessment and Plan (1) Pericardial effusion Current Visit: Yes Status: Acute Large, circumferential pericardial effusion. Clinically, remains asymptomatic. No immediate need for intervention. Recommend stopping Eliquis in preparation for possible intervention. Interrogate device - capture normal on telemetry. No signs of lead perforation on CXR, but will evaluate lead impedances. Discussed with CT surgery. Observation and repeat limited echocardiogram. Given size of effusion and already compromised cardiac function (NICMP), I suspect drainage will be in patient's best interest. Further recommendations to follow. (2) NICM (nonischemic cardiomyopathy) Current Visit: Yes Status: Acute NICMP. Holding ACEi/BB therapy in setting of effusion. IM started Lasix/Aldactone PO, will need to monitor BP closely given effusion. Recommend avoid aggressive diuresis in setting of large pericardia effusion. (3) Cardiac resynchronization therapy defibrillator (SAP SENIOR DEVELOPER-D) in place Current Visit: Yes Status: Acute SAP SENIOR DEVELOPER-D placed in June. [employer] device. Interrogation requested. (4) Atrial fibrillation Current Visit: Yes Status: Acute Reported history of AF. Currently pacing 80 bpm. Eliquis on hold for pericardial effusion. Further recommendations to follow. Qualifiers: Atrial fibrillation type: unspecified Qualified Code(s): I48.91 - Unspecified atrial fibrillation Discussion w patient/family: The assessment and plan as outlined above was discussed with the patient and/or family members who expressed understanding and agreement. All questions were answered. Thank you for involving us in the care of your patient. Please call with any questions. Subjective Principal diagnosis: Pericardial Effusion Interval history: No events overnight. Clinically remains stable - no hypotension, no symptoms reported. Objective General: Conversant, No Apparent Distress HEENT: Atraumatic, Normocephaly, Mucus Membranes Moist Neck: No JVD, Normal carotid pulses Cardiac: Reg Rate and Rhythm, Normal S1 and S2, No Murmur Lungs: Normal Breath Sounds, No Wheeze, Rales, Rhonchi Neuro: Alert and responsive Abdomen: Soft, Non-Tender, Other (Obese) Skin: No rashes noted on visualized skin Musculoskeletal: No Chest Wall Tenderness Extremities: No Clubbing, No Cyanosis, Other (Mild edema) Results 08/16/16 04:15 08/16/16 04:15 - Imaging and Cardiology Echo: report reviewed - EKG Interpretation EKG results cardiology: personally reviewed Consult Discharge Plan - Plan Referrals: [facility] [Primary Care Provider] -
[2016-08-16] MEDS: Aspirin 81 MG TAB.CHEW PO SCH (13:30)
[2016-08-16] MEDS: Spironolactone 25 MG TABLET PO SCH (13:31)
[2016-08-16] MEDS: *HR* Heparin 5,000 UNIT/ML VIAL SQ SCH ×2 (13:31→21:17)
--- NOTE | 2016-08-16 15:17 | Internal Med Progress Note ---
Date of Encounter: 08/16/16 Time of Encounter: 15:11 - Assessment and plan (1) Pericardial effusion Current Visit: Yes Status: Acute Assessment and plan: Reported large pericardial effusion on echocardiogram done at [facility]. He can lay down flat and does not have shortness of breath. Cardiology/cardiothoracic surgery on the board. (2) NICM (nonischemic cardiomyopathy) Current Visit: Yes Status: Acute Assessment and plan: Long-standing nonischemic cardiomyopathy Not sure the etiology of same (3) Cardiac resynchronization therapy defibrillator (COMPLAINT EVALUATION OFFICER-D) in place Current Visit: Yes Status: Acute Assessment and plan: [employer] (4) Atrial fibrillation Current Visit: Yes Status: Acute Assessment and plan: rate-controlled Hold A/C for Procedure Qualifiers: Atrial fibrillation type: unspecified Qualified Code(s): I48.91 - Unspecified atrial fibrillation (5) DVT prophylaxis Current Visit: Yes Status: Acute Assessment and plan: Heparin - Subjective Interval history: Seen and examined. Chart reviewed. Patient denies any shortness of breath, chest pain, palpitations, dizziness, diarrhea or vomiting. - Constitutional Vitals: Temp Pulse Resp BP Pulse Ox 97.8 F 79 16 120/82 93 08/16/16 08:09 08/16/16 08:09 08/16/16 08:09 08/16/16 08:09 08/16/16 08:09 - Head Head exam: Present: atraumatic, normocephalic - Eye Eye exam: Present: PERRL, conjuntiva pink, sclera anicteric Pupils: Present: PERRL - Neck Neck exam general surgery: Present: supple, trachea midline. Absent: lymphadenopathy - Respiratory Respiratory exam: Present: CTAB. Absent: accessory muscle use, rales, rhonchi, wheezes - Cardiovascular Cardiovascular exam: Present: RRR, +S1, +S2. Absent: diastolic murmur, gallop, rubs, systolic murmur - GI/Abdominal GI/Abdominal exam: Present: normal bowel sounds, soft, no peritoneal signs. Absent: distended, tenderness - Extremities Exam Extremities exam: Present: warm, radial pulses palpable and symetrical. Absent : calf tenderness, cyanotic, pedal edema - Neurological Exam Neurological exam: Present: CN II-XII intact, oriented X3, no focal deficits. Absent: pronater drift, facial droop, speech deficit - Skin Skin exam: Present: dry, intact Internal Medicine: Result - Labs CBC & Chem 7: 08/16/16 04:15 08/16/16 04:15 Consult Discharge Plan - Plan [facility]: [facility] [Primary Care Provider] -
[2016-08-16] MEDS: Insulin DETEMIR 100 UNIT/ML X5UNITS SQ SCH (21:18)
[2016-08-17 06:50] LABS: Basophils % 0.2 %; Eosinophils # 0.1 K/mcL (0.0-0.6); Eosinophils % 1.5 %; Hemoglobin 11.1 g/dL (12.9-16.9); Immature Granulocytes % 1.3 % (0-4); Immature Platelets 2.5 % (1.1-6.1); Lymphocytes # 1.5 K/mcL (0.6-4.6); Mean Corpuscular HGB Conc 30.8 g/dL (31.6-35.5); Mean Corpuscular Hemoglobin 26.2 pg (28.0-33.3); Mean Corpuscular Volume 84.9 fL (83.0-100.0); Mean Platelet Volume 10.1 fL (9.4-12.4); Monocytes # 0.6 K/mcL (0.0-1.3); Monocytes % 9.8 %; Neutrophils # 3.8 K/mcL (1.6-8.9); Platelet Count 156 K/mcL (140-400); Red Blood Count 4.24 M/mcL (4.19-5.50); Red Cell Distribution Width 15.1 % (11.5-14.5); Segmented Neutrophils % 62.2 %
[2016-08-17] MEDS: *HR* Heparin 5,000 UNIT/ML VIAL SQ SCH (06:59)
[2016-08-17 07:05] LABS: Alanine Aminotransferase 16 Units/L (0-55); Albumin 3.1 g/dL (3.5-5.0); Albumin/Globulin Ratio 0.9 (1.1-2.2); Alkaline Phosphatase 66 Units/L (38-126); Aspartate Amino Transferase 22 Units/L (5-34); BUN/Creatinine Ratio 24 (6-26); Bilirubin,Total 0.6 mg/dL (0.2-1.2); Blood Urea Nitrogen 29 mg/dL (8-26); Calcium 9.6 mg/dL (8.6-10.8); Carbon Dioxide 32 mEq/L (19-29); Chloride 100 mEq/L (98-109); Globulin 3.5 g/dL (2.4-3.5); Glucose 125 mg/dL (70-99); Osmolality,Calculated 295 (280-300); Potassium 4.5 mEq/L (3.5-4.5); Sodium 139 mEq/L (136-145); Total Protein 6.6 g/dL (6.0-8.3); eGFR For African Americans > 60 (> 60); eGFR For Non-African Americans 58 (> 60)
--- NOTE | 2016-08-17 08:35 | Cardiothoracic Progress Note ---
Date of Encounter: 08/17/16 Time of Encounter: 08:32 - Assessment and plan (1) Pericardial effusion Current Visit: Yes Status: Acute Then patient is a 71-year-old type II diabetic, hypertensive man with cardiomyopathy who was transferred to [facility] for evaluation of a large pericardial effusion without tamponade. He had an uneventful day yesterday and was able to ambulate without complaints of shortness of breath or dyspnea on exertion. Options for this patient's pericardial effusion treatment include percutaneous pericardiocentesis in the cardiac catheterization lab, subxiphoid pericardial window in the operating room , or serial echocardiograms to evaluate the effusion. In discussing the case with Dr. Endy Cm, we both believe that the pericardial effusion should be drained. We will speak with the sales exec on Thursday to discuss possible percutaneous pericardiocentesis. If this is not possible, I would then perform a subxiphoid pericardial window. The patient and his family or wear of the increased risk due to his previous history of difficulty with sedation. The assessment and plan as outlined above was discussed with the patient and/or family members who expressed understanding and agreement. All questions were answered. - Subjective Interval history: The patient is sitting in a chair at the bedside. He was able to ambulate in the hallways chest today without complaints of shortness of breath and dyspnea exertion. Vital Signs, Last 4 Hours Temp Pulse Resp BP Pulse Ox 08/17/16 07:45 95 08/17/16 07:12 97.9 F 80 16 123/75 95 Weight 08/15/16 08/16/16 08/17/16 23:59 23:59 23:59 Weight 110.4 kg - Physical Examination General: Conversant, No Apparent Distress Neck: No JVD, Normal carotid pulses Cardiac: Reg Rate and Rhythm, Normal S1 and S2, No Murmur Lungs: Normal Breath Sounds, No Wheeze, Rales, Rhonchi Neuro: Alert and responsive, No focal deficits noted Vascular: Normal capillary refill Musculoskeletal: No Chest Wall Tenderness Extremities: No Clubbing, No Cyanosis, No Edema - Labs 08/17/16 05:51 08/17/16 05:51 Lab Results, Last 24 hours 08/17/16 08/17/16 05:51 05:51 WBC 6.2 Hgb 11.1 L Hct 36.0 L Plt Count 156 Sodium 139 Potassium 4.5 Chloride 100 Carbon Dioxide 32 H BUN 29 H Creatinine 1.23 Glucose 125 H Calcium 9.6 Total Bilirubin 0.6 AST 22 ALT 16 Alkaline Phosphatase 66 Consult Discharge Plan - Plan [facility]errals: [facility] [Primary Care Provider] -
[2016-08-17] MEDS: Gabapentin 300 MG CAPSULE PO SCH ×3 (09:03→20:23)
[2016-08-17] MEDS: Aspirin 81 MG TAB.CHEW PO SCH (09:03)
[2016-08-17] MEDS: Spironolactone 25 MG TABLET PO SCH (09:03)
[2016-08-17] MEDS: Insulin LISPRO 300 UNITS/3 ML VIAL SQ SCH ×4 (09:03→20:29)
[2016-08-17] MEDS: Cholecalciferol (D-3) 1,000 UNIT TABLET PO SCH (09:03)
--- NOTE | 2016-08-17 09:09 | Cardiology Progress Note ---
Date of Encounter: 08/17/16 Time of Encounter: 09:08 Assessment and Plan (1) Pericardial effusion Current Visit: Yes Status: Acute Large, circumferential pericardial effusion. Clinically, remains asymptomatic. No immediate need for intervention. Stopped Eliquis in preparation for possible intervention. Will start heparin gtt for AF anticoagulation. Interrogated device - no significant findings. Episode of ATR >48 hours on . Discussed with CT surgery. Observation and repeat limited echocardiogram tomorrow. CT surgery plans to discuss with heavy forger helper tomorrow to discuss possible percutaneous paricardiocentesis vs. subxiphoid pericardial window. Given size of effusion and already compromised cardiac function (NICMP), suspect drainage will be in patient's best interest. Further recommendations to follow. (2) Atrial fibrillation Current Visit: Yes Status: Acute Reported history of AF. Intermittently pacing on tele. Eliquis on hold for pericardial effusion. Has been >24 hours. Will start heparin gtt for anticoagulation. Further recommendations to follow. Qualifiers: Atrial fibrillation type: unspecified Qualified Code(s): I48.91 - Unspecified atrial fibrillation (3) Cardiac resynchronization therapy defibrillator (RETAIL CUSTOMER SERVICE REPRESENTATIVE-D) in place Current Visit: Yes Status: Acute RETAIL CUSTOMER SERVICE REPRESENTATIVE-D placed in June. [employer] ([place]) device. Interrogation revealed no significant findings. (4) NICM (nonischemic cardiomyopathy) Current Visit: Yes Status: Acute NICMP. Holding ACEi/BB therapy in setting of effusion. IM started Lasix/Aldactone PO, monitor BP closely given effusion. Recommend avoid aggressive diuresis in setting of large pericardia effusion. Discussion w patient/family: The assessment and plan as outlined above was discussed with the patient and/or family members who expressed understanding and agreement. All questions were answered. Thank you for involving us in the care of your patient. Please call with any questions. I will discuss all the above with Dr. Cm and make changes as necessary. Subjective Principal diagnosis: Pericardial Effusion Interval history: Pt denies any acute complaints this AM. Denies chest pain or dyspnea. Device check showed no significant findings. Objective Vital Signs, Last 4 Hours Temp Pulse Resp BP Pulse Ox 08/17/16 07:45 95 08/17/16 07:12 97.9 F 80 16 123/75 95 Vital Signs Temp Pulse Resp BP Pulse Ox 08/17/16 07:45 95 08/17/16 07:12 97.9 F 80 16 123/75 95 08/17/16 04:00 80 16 114/72 99 08/16/16 21:00 98.3 F 80 16 125/79 94 08/16/16 16:02 97.7 F 79 16 125/70 95 Intake and Output 08/16/16 08/17/16 08/17/16 23:59 07:59 15:59 Intake Total 240 / 240 0 / 0 Balance 240 / 240 0 / 0 Intake: Oral 240 / 240 0 / 0 Other: Meal Dinner Percent of Meal Consumed 100% # Voids 1 Weight 110.4 kg Blood Glucose* 202 148 Patient Weight 08/17/16 23:59 Weight 110.4 kg General: Conversant, No Apparent Distress HEENT: Atraumatic, Normocephaly, Mucus Membranes Moist Neck: No JVD, Normal carotid pulses Cardiac: Reg Rate and Rhythm, Normal S1 and S2, No Murmur Lungs: Normal Breath Sounds, No Wheeze, Rales, Rhonchi Neuro: Alert and responsive, No focal deficits noted Abdomen: Soft, Non-Tender Skin: No rashes noted on visualized skin Musculoskeletal: No Chest Wall Tenderness Extremities: No Clubbing, No Cyanosis, No Edema, Normal Pulses Results 08/17/16 05:51 08/17/16 05:51 Lab Results 08/17/16 08/17/16 05:51 05:51 WBC 6.2 Hgb 11.1 L Hct 36.0 L Plt Count 156 Sodium 139 Potassium 4.5 Chloride 100 Carbon Dioxide 32 H BUN 29 H Creatinine 1.23 Glucose 125 H Calcium 9.6 Total Bilirubin 0.6 AST 22 ALT 16 Alkaline Phosphatase 66 - Imaging and Cardiology Echo: report reviewed - EKG Interpretation EKG results cardiology: other (24 hour tele AVG HR 81, intermittently paced, PAF ) Consult Discharge Plan - Plan [facility]errals: [facility] [Primary Care Provider] -
[2016-08-17] MEDS ORDERED: *HR* Heparin 5,000 UNIT/ML VIAL IVP PRN ×2 (09:17)
[2016-08-17] MEDS ORDERED: *HR* Heparin 5,000 UNIT/ML VIAL IVP ONE (09:17)
[2016-08-17] MEDS: Heparin 25,000 UNIT/500 ML D5W 25,000 UNIT/500 ML MLS IVC SCH (10:30)
[2016-08-17 10:51] LABS: Hematocrit 40.3 % (37.5-50.1); Hemoglobin 12.1 g/dL (12.9-16.9); Mean Corpuscular Hemoglobin 25.5 pg (28.0-33.3); Mean Corpuscular Volume 84.8 fL (83.0-100.0); Mean Platelet Volume 9.3 fL (9.4-12.4); Platelet Count 149 K/mcL (140-400); Red Blood Count 4.75 M/mcL (4.19-5.50)
[2016-08-17 11:02] LABS: INR 1.4; Prothrombin Time 14.7 Seconds (9.4-12.1)
[2016-08-17 11:05] LABS: Activated Partial Thrombo Time 28.3 Seconds (26.0-36.0)
--- NOTE | 2016-08-17 14:41 | Internal Med Progress Note ---
Date of Encounter: 08/17/16 Time of Encounter: 14:39 - Assessment and plan (1) Pericardial effusion Current Visit: Yes Status: Acute Assessment and plan: Reported large pericardial effusion on echocardiogram done at [facility]. He can lay down flat and does not have shortness of breath. Cardiology/cardiothoracic surgery on the board. 08/17/2016. Noted input from cardiology/interventional cardiology and CT surgery. We will follow the recommendations. (2) NICM (nonischemic cardiomyopathy) Current Visit: Yes Status: Acute Assessment and plan: Long-standing nonischemic cardiomyopathy Not sure the etiology of same (3) Cardiac resynchronization therapy defibrillator (PREMIUM NOTE INTEREST CALCULATOR CLERK-D) in place Current Visit: Yes Status: Acute Assessment and plan: [employer] (4) Atrial fibrillation Current Visit: Yes Status: Acute Assessment and plan: rate-controlled Hold A/C for Procedure Qualifiers: Atrial fibrillation type: unspecified Qualified Code(s): I48.91 - Unspecified atrial fibrillation (5) DVT prophylaxis Current Visit: Yes Status: Acute Assessment and plan: Heparin - Subjective Interval history: Seen and examined. Chart reviewed. Patient denies any shortness of breath, chest pain, palpitations, dizziness, diarrhea or vomiting. 08/17/2016 Patient seen and examined. Chart review. Patient is comfortably lying in the bed. No active complaints noted. - Constitutional Vitals: Temp Pulse Resp BP Pulse Ox 98.3 F 80 16 118/81 94 08/17/16 12:18 08/17/16 12:18 08/17/16 12:18 08/17/16 12:18 08/17/16 12:18 General appearance: Present: A&O X 3, pleasant, no acute distress, answers questions appropriately - Head Head exam: Present: atraumatic, normocephalic - Eye Eye exam: Present: PERRL, conjuntiva pink, sclera anicteric Pupils: Present: PERRL - Neck Neck exam general surgery: Present: supple, trachea midline. Absent: lymphadenopathy - Respiratory Respiratory exam: Present: CTAB. Absent: accessory muscle use, rales, rhonchi, wheezes - Cardiovascular Cardiovascular exam: Present: RRR, +S1, +S2. Absent: diastolic murmur, gallop, rubs, systolic murmur - GI/Abdominal GI/Abdominal exam: Present: normal bowel sounds, soft, no peritoneal signs. Absent: distended, tenderness - Extremities Exam Extremities exam: Present: warm, radial pulses palpable and symetrical. Absent : calf tenderness, cyanotic, pedal edema - Neurological Exam Neurological exam: Present: CN II-XII intact, oriented X3, no focal deficits. Absent: pronater drift, facial droop, speech deficit - Skin Skin exam: Present: dry, intact Internal Medicine: Result - Labs CBC & Chem 7: 08/17/16 10:23 08/17/16 05:51 Labs: Short CBC 08/17/16 08/17/16 Range/Units 05:51 10:23 WBC 6.2 6.6 (4.3-11.1) K/mcL Hgb 11.1 L 12.1 L (12.9-16.9) g/dL Hct 36.0 L 40.3 (37.5-50.1) % Plt Count 156 149 (140-400) K/mcL Neutrophils # 3.8 (1.6-8.9) K/mcL BMP 08/17/16 05:51 Sodium 139 Potassium 4.5 Chloride 100 Carbon Dioxide 32 H BUN 29 H Creatinine 1.23 Glucose 125 H Calcium 9.6 Liver Function 08/17/16 Range/Units 05:51 Total Bilirubin 0.6 (0.2-1.2) mg/dL AST 22 (5-34) Units/L ALT 16 (0-55) Units/L Alkaline Phosphatase 66 (38-126) Units/L Albumin 3.1 L (3.5-5.0) g/dL - ABG Interpretation ABG results: PT/INR, D-dimer PT 14.7 Seconds (9.4-12.1) H 08/17/16 10:23 Consult Discharge Plan - Plan [facility]errals: [facility] [Primary Care Provider] -
[2016-08-17] MEDS: Insulin DETEMIR 100 UNIT/ML X5UNITS SQ SCH (20:28)
[2016-08-18] MEDS: Heparin 25,000 UNIT/500 ML D5W 25,000 UNIT/500 ML MLS IVC SCH ×2 (03:00→18:15)
[2016-08-18 04:49] LABS: Basophils % 0.2 %; Eosinophils # 0.1 K/mcL (0.0-0.6); Eosinophils % 1.5 %; Hematocrit 35.7 % (37.5-50.1); Hemoglobin 10.8 g/dL (12.9-16.9); Immature Granulocytes % 0.6 % (0-4); Lymphocytes # 1.3 K/mcL (0.6-4.6); Lymphocytes % 25.7 %; Mean Corpuscular HGB Conc 30.3 g/dL (31.6-35.5); Mean Corpuscular Hemoglobin 25.4 pg (28.0-33.3); Mean Corpuscular Volume 83.8 fL (83.0-100.0); Mean Platelet Volume 10.3 fL (9.4-12.4); Monocytes # 0.6 K/mcL (0.0-1.3); Monocytes % 10.7 %; Neutrophils # 3.2 K/mcL (1.6-8.9); Platelet Count 148 K/mcL (140-400); Red Blood Count 4.26 M/mcL (4.19-5.50); Red Cell Distribution Width 14.9 % (11.5-14.5); Segmented Neutrophils % 61.3 %
[2016-08-18 05:04] LABS: Albumin 3.1 g/dL (3.5-5.0); Albumin/Globulin Ratio 0.9 (1.1-2.2); Bilirubin,Total 0.6 mg/dL (0.2-1.2); Calcium 9.7 mg/dL (8.6-10.8); Globulin 3.6 g/dL (2.4-3.5); Potassium 4.5 mEq/L (3.5-4.5); Total Protein 6.7 g/dL (6.0-8.3)
--- NOTE | 2016-08-18 07:24 | Cardiothoracic Progress Note ---
Date of Encounter: 08/18/16 Time of Encounter: 07:22 - Assessment and plan (1) Pericardial effusion Current Visit: Yes Status: Acute Then patient is a 71-year-old type II diabetic, hypertensive man with cardiomyopathy who was transferred to [facility] for evaluation of a large pericardial effusion without tamponade. He had an uneventful day yesterday and was able to ambulate without complaints of shortness of breath or dyspnea on exertion. Options for this patient's pericardial effusion treatment include percutaneous pericardiocentesis in the cardiac catheterization lab, subxiphoid pericardial window in the operating room , or serial echocardiograms to evaluate the effusion. In discussing the case with Dr. Endy Cm, we both believe that the pericardial effusion should be drained. A decision will be made as to the drainage approach after discussion with Dr. Brunson this morning. The patient and his family or wear of the increased risk due to his previous history of difficulty with sedation. The assessment and plan as outlined above was discussed with the patient and/or family members who expressed understanding and agreement. All questions were answered. - Subjective Interval history: The patient is an comfortably in his hospital bed. He was able to ambulate in the hallways chest yesterday without complaints of shortness of breath and dyspnea exertion. Vital Signs, Last 4 Hours Temp Pulse Resp BP Pulse Ox 08/18/16 03:45 98.4 F 83 16 123/76 92 Weight 08/16/16 08/17/16 08/18/16 23:59 23:59 23:59 Weight 110.4 kg 112.6 kg - Physical Examination General: Conversant Neck: No JVD, Normal carotid pulses Cardiac: Reg Rate and Rhythm, Normal S1 and S2, No Murmur Lungs: Normal Breath Sounds, No Wheeze, Rales, Rhonchi Neuro: Alert and responsive, No focal deficits noted Vascular: Normal capillary refill Musculoskeletal: No Chest Wall Tenderness Extremities: No Clubbing, No Cyanosis, No Edema - Labs 08/18/16 03:56 08/18/16 03:56 Lab Results, Last 24 hours 08/17/16 08/17/16 08/17/16 10:23 10:23 17:25 WBC 6.6 Hgb 12.1 L Hct 40.3 Plt Count 149 INR 1.4 APTT 28.3 83.3 H D Sodium Potassium Chloride Carbon Dioxide BUN Creatinine Glucose Calcium Total Bilirubin AST ALT Alkaline Phosphatase 08/17/16 08/18/16 08/18/16 23:54 03:56 03:56 WBC 5.2 Hgb 10.8 L Hct 35.7 L Plt Count 148 INR APTT 74.7 H Sodium 138 Potassium 4.5 Chloride 100 Carbon Dioxide 30 H BUN 33 H Creatinine 1.45 H Glucose 154 H Calcium 9.7 Total Bilirubin 0.6 AST 20 ALT 16 Alkaline Phosphatase 68 Consult Discharge Plan - Plan [facility]errals: [facility] [Primary Care Provider] -
--- NOTE | 2016-08-18 08:19 | Cardiology Progress Note ---
Addendum entered and electronically signed by Brain Gomez DO 08/18/16 10:50 : Cardiology signing off, please contact with any additional questions or concerns Original Note: Date of Encounter: 08/18/16 Time of Encounter: 08:17 Assessment and Plan (1) Atrial fibrillation Current Visit: Yes Status: Acute Reported history of AF. Intermittently pacing on tele. Currently paced with rate of 80 Eliquis on hold for pericardial effusion. Has been >24 hours. Currently on heparin gtt for anticoagulation. Recommend restarting Eliquis when OK with CT surgery Qualifiers: Atrial fibrillation type: unspecified Qualified Code(s): I48.91 - Unspecified atrial fibrillation (2) Cardiac resynchronization therapy defibrillator (IT SECURITY SPECIALIST-D) in place Current Visit: Yes Status: Acute IT SECURITY SPECIALIST-D placed in June. [employer] device. Interrogation revealed no significant findings. (3) NICM (nonischemic cardiomyopathy) Current Visit: Yes Status: Acute NICMP. Holding ACEi/BB therapy in setting of effusion. IM started Lasix/Aldactone PO, monitor BP closely given effusion. Recommend avoid aggressive diuresis in setting of large pericardial effusion. (4) Pericardial effusion Current Visit: Yes Status: Acute He has a large cirumferential pericardial effusion. Clinically asymptomatic, and his echo on admission did not show evidence of tamponade. Eliquis is held and is currently on heparin gtt for his A-fib. Interrogated device - no significant findings. Episode of ATR >48 hrs on 07/03 CT surgery discussed with cardiology about pericardiocentesis due to adverse reactions to sedation in the past. Likely no pericardiocentesis. Pericardial window to be determined by CT surgery Discussion w patient/family: The assessment and plan as outlined above was discussed with the patient and/or family members who expressed understanding and agreement. All questions were answered. Thank you for involving us in the care of your patient. Please call with any questions. Subjective Principal diagnosis: Pericardial Effusion Interval history: No acute events reported overnight. Patient states he is still asymptomatic but he is hungry. Will CP/SOB. Denies new swelling. No abdominal pain or vomiting. Objective Vital Signs, Last 4 Hours Temp Pulse Resp BP Pulse Ox 08/18/16 07:00 98.5 F 79 18 118/69 93 General: Conversant, No Apparent Distress HEENT: Atraumatic Neck: No JVD Cardiac: Reg Rate and Rhythm, Normal S1 and S2 Lungs: Normal Breath Sounds, No Wheeze, Rales, Rhonchi Neuro: Alert and responsive, No focal deficits noted Abdomen: Soft Skin: No rashes noted on visualized skin Extremities: No Cyanosis, No Edema Results 08/18/16 03:56 08/18/16 03:56 Lab Results 08/17/16 08/17/16 08/17/16 10:23 10:23 17:25 WBC 6.6 Hgb 12.1 L Hct 40.3 Plt Count 149 INR 1.4 APTT 28.3 83.3 H D Sodium Potassium Chloride Carbon Dioxide BUN Creatinine Glucose Calcium Total Bilirubin AST ALT Alkaline Phosphatase 08/17/16 08/18/16 08/18/16 23:54 03:56 03:56 WBC 5.2 Hgb 10.8 L Hct 35.7 L Plt Count 148 INR APTT 74.7 H Sodium 138 Potassium 4.5 Chloride 100 Carbon Dioxide 30 H BUN 33 H Creatinine 1.45 H Glucose 154 H Calcium 9.7 Total Bilirubin 0.6 AST 20 ALT 16 Alkaline Phosphatase 68 Consult Discharge Plan - Plan [facility]errals: [facility] [Primary Care Provider] -
--- NOTE | 2016-08-18 08:50 | Electrocardiograph Report ---
[place] [id number] Test Date: 2016-08-15 Pat Name: Krishna Thomson Department: 105 Room: [id number] Gender: M Contract Analyst: : 1945 Requested By: Reginald Stephens Order Number: [id number] Reading MD: Darrius Brunson MD Measurements Intervals [place] Rate: 80 P: MS: 0 QRS: -79 QRSD: 173 T: 92 QT: 404 QTc: 439 Interpretive Statements ELECTRONIC VENTRICULAR PACEMAKER Electronically Signed On 08-18-2016 8:49:12 EDT by Darrius Brunson MD
[2016-08-18] MEDS: Insulin LISPRO 300 UNITS/3 ML VIAL SQ SCH ×4 (09:13→22:03)
--- NOTE | 2016-08-18 10:26 | Internal Med Progress Note ---
<Karley Knight Jhonny - Last Filed: 08/18/16 12:07> Date of Encounter: 08/18/16 Time of Encounter: 10:15 - Assessment and plan (1) Pericardial effusion Current Visit: Yes Status: Acute Assessment and plan: Reported large pericardial effusion on echocardiogram done at [facility]. He can lay down flat and does not have shortness of breath. Cardiology/cardiothoracic surgery on the board. 08/17/2016. Noted input from cardiology/interventional cardiology and CT surgery. We will follow the recommendations. 08/18/2016. Patient comfortable and without dyspnea or orthopnea. CT surgery to perform pericardial window. Will await further recommendations. (2) NICM (nonischemic cardiomyopathy) Current Visit: Yes Status: Acute Assessment and plan: Long-standing nonischemic cardiomyopathy Not sure the etiology of same (3) Cardiac resynchronization therapy defibrillator (PPA TEACHER-D) in place Current Visit: Yes Status: Acute Assessment and plan: iSites Interrogation per cardiology revealed appropriate function (4) Atrial fibrillation Current Visit: Yes Status: Acute Assessment and plan: Rate-controlled with HR 70s-80s Hold A/C for Procedure Qualifiers: Atrial fibrillation type: unspecified Qualified Code(s): I48.91 - Unspecified atrial fibrillation (5) Renal insufficiency Current Visit: Yes Status: Acute (6) DVT prophylaxis Current Visit: Yes Status: Acute Assessment and plan: Heparin - Time Spent With Patient less than 15 minutes (15 minutes including time with patient and coordinating care) - Subjective Interval history: Patient seated on couch and resting comfortably at time of patient interview. Patient denies dyspnea, orthopnea. He states that his peripheral edema is decreased from baseline. - Constitutional Vitals: Temp Pulse Resp BP Pulse Ox 98.5 F 79 18 118/69 93 08/18/16 07:00 08/18/16 07:00 08/18/16 07:00 08/18/16 07:00 08/18/16 07:00 General appearance: Present: A&O X 3, pleasant, no acute distress, obese, answers questions appropriately - Head Head exam: Present: atraumatic, normocephalic - Eye Eye exam: Present: PERRL, conjuntiva pink, sclera anicteric Pupils: Present: PERRL - Neck Neck exam general surgery: Present: full ROM, normal inspection, supple, trachea midline. Absent: lymphadenopathy - Respiratory Respiratory exam: Present: CTAB. Absent: accessory muscle use, rales, rhonchi, wheezes - Cardiovascular Cardiovascular exam: Present: RRR, +S1, +S2. Absent: diastolic murmur, gallop, rubs, systolic murmur Additional comments: no carotid bruit bilaterally - GI/Abdominal GI/Abdominal exam: Present: normal bowel sounds, soft, no peritoneal signs. Absent: distended, tenderness - Extremities Exam Extremities exam: Present: pedal edema (1+ pedal edema), warm, radial pulses palpable and symetrical. Absent: calf tenderness, cyanotic - Neurological Exam Neurological exam: Present: CN II-XII intact, oriented X3, no focal deficits. Absent: pronater drift, facial droop, speech deficit - Skin Skin exam: Present: dry, intact Internal Medicine: Result - Labs CBC & Chem 7: 08/18/16 03:56 08/18/16 03:56 Labs: Short CBC 08/17/16 08/18/16 Range/Units 10:23 03:56 WBC 6.6 5.2 (4.3-11.1) K/mcL Hgb 12.1 L 10.8 L (12.9-16.9) g/dL Hct 40.3 35.7 L (37.5-50.1) % Plt Count 149 148 (140-400) K/mcL Neutrophils # 3.2 (1.6-8.9) K/mcL BMP 08/18/16 03:56 Sodium 138 Potassium 4.5 Chloride 100 Carbon Dioxide 30 H BUN 33 H Creatinine 1.45 H Glucose 154 H Calcium 9.7 Liver Function 08/18/16 Range/Units 03:56 Total Bilirubin 0.6 (0.2-1.2) mg/dL AST 20 (5-34) Units/L ALT 16 (0-55) Units/L Alkaline Phosphatase 68 (38-126) Units/L Albumin 3.1 L (3.5-5.0) g/dL - ABG Interpretation ABG results: PT/INR, D-dimer PT 14.7 Seconds (9.4-12.1) H 08/17/16 10:23 - Impressions Chest X-Ray 08/15/16 19:31 IMPRESSION: Severely enlarged cardiac silhouette. D/ / Endy Andrade MD / Endy Andrade MD Interpreting Provider: Endy Andrade MD Consult Discharge Plan - Plan [facility]errals: [facility]Primary Care Provider[facility] - <Reginald Stephens P - Last Filed: 08/18/16 19:00> Date of Encounter: 08/18/16 - Assessment and plan (1) Pericardial effusion Current Visit: Yes Status: Acute (2) NICM (nonischemic cardiomyopathy) Current Visit: Yes Status: Acute (3) Cardiac resynchronization therapy defibrillator (PPA TEACHER-D) in place Current Visit: Yes Status: Acute (4) Atrial fibrillation Current Visit: Yes Status: Acute Qualifiers: Atrial fibrillation type: unspecified Qualified Code(s): I48.91 - Unspecified atrial fibrillation (5) DVT prophylaxis Current Visit: Yes Status: Acute - Constitutional Vitals: Temp Pulse Resp BP Pulse Ox 97.3 F L 82 16 122/75 97 08/18/16 15:00 08/18/16 15:00 08/18/16 15:00 08/18/16 15:00 08/18/16 15:00 Internal Medicine: Result - Labs CBC & Chem 7: 08/18/16 03:56 08/18/16 03:56 Labs: Short CBC 08/18/16 Range/Units 03:56 WBC 5.2 (4.3-11.1) K/mcL Hgb 10.8 L (12.9-16.9) g/dL Hct 35.7 L (37.5-50.1) % Plt Count 148 (140-400) K/mcL Neutrophils # 3.2 (1.6-8.9) K/mcL BMP 08/18/16 03:56 Sodium 138 Potassium 4.5 Chloride 100 Carbon Dioxide 30 H BUN 33 H Creatinine 1.45 H Glucose 154 H Calcium 9.7 Liver Function 08/18/16 Range/Units 03:56 Total Bilirubin 0.6 (0.2-1.2) mg/dL AST 20 (5-34) Units/L ALT 16 (0-55) Units/L Alkaline Phosphatase 68 (38-126) Units/L Albumin 3.1 L (3.5-5.0) g/dL - ABG Interpretation ABG results: PT/INR, D-dimer PT 14.7 Seconds (9.4-12.1) H 08/17/16 10:23 - Attending Attestation I examined this patient and my medical decision-making was reviewed with the WINCH OPERATOR/PA/Advanced Practice Nurse/Resident Physician. I agree with the documented findings, disposition and treatment plan as described except to the extent set forth below.
[2016-08-18] MEDS: Aspirin 81 MG TAB.CHEW PO SCH (12:45)
[2016-08-18] MEDS: Spironolactone 25 MG TABLET PO SCH (12:45)
[2016-08-18] MEDS: Cholecalciferol (D-3) 1,000 UNIT TABLET PO SCH (12:46)
[2016-08-18] MEDS: Gabapentin 300 MG CAPSULE PO SCH ×3 (12:46→22:02)
--- NOTE | 2016-08-18 13:45 | Anesthesia Evaluation PreOp ---
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 Concern for cardiac event with anesthesia) Alcohol Use: none Drug use: none Medications and Allergies Apixaban [Eliquis] 5 mg PO BID 08/15/16 [History] Carbamide Peroxide [Ear Wax Drops] 4 drop BOTH EARS DAILY 08/15/16 [History] Cholecalciferol (D-3) [Vitamin D] 1,000 unit PO DAILY 08/15/16 [History] Furosemide [Lasix] 60 mg PO DAILY 08/15/16 [History] Gabapentin [Neurontin] 300 mg PO TID 08/15/16 [History] GlipiZIDE [Glipizide] 10 mg PO BID 08/15/16 [History] Insulin Glargine,Hum.rec.anlog [Lantus Solostar] 15 unit SQ HS 08/15/16 [History ] Metformin HCl [Glucophage] 1,000 mg PO BID 08/15/16 [History] Methocarbamol [Robaxin] 500 mg PO QID PRN 08/15/16 [History] Metoprolol XL (24 HR) Succ [Toprol XL] 25 mg PO DAILY 08/15/16 [History] Mineral Oil/Petrolatum,White [Eucerin Creme] 1 appl TP BID PRN 08/15/16 [History ] Ramipril [Altace] 5 mg PO DAILY 08/15/16 [History] Rosuvastatin [Crestor] 10 mg PO HS 08/15/16 [History] Spironolactone [Aldactone] 25 mg PO DAILY 08/15/16 [History] Allergies No Known Allergies Allergy (Verified 08/15/16 15:08) - Meds/Allergy Pre-op Review Medications Reviewed: Yes Allergies Reviewed: Yes Beta Blockers on Current Med List: No Anesthesia Results - Labs 08/19/16 01:00 08/19/16 01:00 - Imaging EKG: report reviewed Additional studies: Echo shows global LV systolic dysfunction, moderately dilated RV and bilateral atrial enlargement. EF 25-30% Anesthesia Exam Selected Entries 08/19/16 07:00 Pulse Rate 82 Respiratory Rate 17 Blood Pressure 128/84 O2 Sat by Pulse Oximetry 97 Weight: 113kg NPO (# of Hours): 8 Pain Scale: 0 Pain Scale Used: Numeric (1 - 10) - HEENT Pupil (Motor): EOMI Mallampati: II Teeth: Edentulous Oral Opening: Greater than 3 - AVIATION SURVIVAL TECHNICIAN LOC: Oriented AVIATION SURVIVAL TECHNICIAN Motor: Normal RUE, Normal LUE, Normal RLE, Normal LLE, Normal Face AVIATION SURVIVAL TECHNICIAN Sensory: Normal: RUE, LUE, RLE, LLE, Face - Cardiac Rhythm: Regular Murmur: None - Pulmonary Breath Sounds: bilateral Clear Respiratory Effort: Symmetrical Anesthesia Assess/Plan ASA Score: 3 Modified Elio Scale for Level of Consciousness: Cooperative, oriented, and tranquil Anesthetic Plan: General Monitoring Plan: Standard Monitors Recovery Plan: ICU (May need a-line intraoperatively and even CVC. Questions answered and agrees to proceed.)
[2016-08-18] MEDS: Insulin DETEMIR 100 UNIT/ML X5UNITS SQ SCH (22:02)
[2016-08-18] MEDS: Chlorhexidine Rinse 15 ML MOUTHWASH MM SCH (22:02)
[2016-08-19 01:16] LABS: Basophils % 0.2 %; Eosinophils # 0.1 K/mcL (0.0-0.6); Eosinophils % 1.8 %; Hematocrit 36.9 % (37.5-50.1); Hemoglobin 11.6 g/dL (12.9-16.9); Immature Granulocytes % 0.8 % (0-4); Lymphocytes # 1.3 K/mcL (0.6-4.6); Lymphocytes % 25.7 %; Mean Corpuscular HGB Conc 31.4 g/dL (31.6-35.5); Mean Corpuscular Hemoglobin 26.2 pg (28.0-33.3); Mean Corpuscular Volume 83.5 fL (83.0-100.0); Mean Platelet Volume 10.3 fL (9.4-12.4); Monocytes # 0.5 K/mcL (0.0-1.3); Neutrophils # 3.2 K/mcL (1.6-8.9); Platelet Count 150 K/mcL (140-400); Red Blood Count 4.42 M/mcL (4.19-5.50); Segmented Neutrophils % 62.5 %
[2016-08-19 01:33] LABS: Albumin 3.1 g/dL (3.5-5.0); Albumin/Globulin Ratio 0.8 (1.1-2.2); Bilirubin,Total 0.6 mg/dL (0.2-1.2); Calcium 9.7 mg/dL (8.6-10.8); Globulin 3.8 g/dL (2.4-3.5); Potassium 4.6 mEq/L (3.5-4.5); Total Protein 6.9 g/dL (6.0-8.3)
[2016-08-19] MEDS ORDERED: ceFAZolin 2,000 MG in D5% in Water 100 ML IVPB ONE (07:00)
[2016-08-19] MEDS ORDERED: *HR* Phenylephrine 10 MG/ML VIAL ONE (08:12)
[2016-08-19] MEDS ORDERED: *HR* Rocuronium Bromide 50 MG/5 ML VIAL ONE (08:12)
[2016-08-19] MEDS ORDERED: *HR* FentaNYL (PF) 250 MCG/5 ML VIAL ONE (08:14)
[2016-08-19] MEDS ORDERED: *HR* Propofol 200 MG/20 ML VIAL IVP ONE (08:15)
--- NOTE | 2016-08-19 09:04 | ECHO - Doppler Report ---
Limited Echocardiogram Name: Krishna Thomson Date of Study: 08/18/2016 Date: 1945 Ht: 69.0 in Medical Record#: [id number] Age: 71 Wt: 248.0 lb Gender: Male BSA: 2.26 Order #: [id number] Location: [facility] Room #: [id number] Reading Physician: Eulalia Harry DO Hims Coder: Anahi Ryan Ordering Physician: French Zarate CNP Primary Physician: [facility] Indications: Pericardial Effusion Impressions: Moderate to large pericardial effusion which is most prominent posterior and laterally. No definite evidence of tamponade on this study; Blood pressure is normal. RA does not collapse. RV does not appear to collapse but cavity is small and underfilled on this study throughout the cardiac cycle. IVC was not visualized. Mitral valve inflow with respirometer may indicate increased respiratory variation. Recommend clinical correlation. Consider repeat study in 1-2 days. Findings: Study Quality * Technically adequate exam. ECG Findings * Paced rhythm. Device lead * A device lead was visualized in the right atrium and right ventricle. Mitral Valve * Mild mitral regurgitation. Pericardium * There is a moderate to large sized pericardial effusion. This is moderate anteriorly and large posteriorly. Right Atrium * RA collapse is not visualized. Right Ventricle * RV cavity is small and underfilled on subcostal imaging. Function not well assessed. Left Ventricle * Moderate to severe LV systolic dysfunction. IVC * The IVC is not well evaluated. History Hypertension Diabetes Hypercholesteremia Myocardial Infarction Congestive Heart Failure Pacer/ICD Implant 08/15/2016 a Previous Echo was performed. Measurements: BP: 122/ 75 2D Normal Values RVIDd: 4.10 cm <2.7 cm IVSd: 1.30 cm 0.6 - 1.0 cm LVIDd: 6.20 cm 3.7 - 5.6 cm LVPWd: 1.00 cm 0.6 - 1.1 cm LVIDs: 5.20 cm 1.5 - 3.6 cm %FS: 16.10 cm >25 % LA volume: Updated by Eulalia Harry on 08/19/2016 8:41:48 AM electronically signed on 08/19/2016 8:57:54 AM with status of Final Wall Motion Ruiz: 1=Normal, 2=Hypokinesis, 3=Akinesis, 4=Dyskinesis, 5=Aneurysmal, 6=Hyperkinetic, X=Not Visualized (Blank)=Missing
--- NOTE | 2016-08-19 10:30 | Operative Note ---
Date of procedure: 08/19/16 Pre-op diagnosis: Pericardial effusion Post-op diagnosis: same Procedure: 1. Subxiphoid pericardial window. Implants: None. Complications: None. Anesthesia: GETA Local Anesthetics: 0.5% Sensorcaine HCL SubQ (cc) (10) Estimated blood loss (cc): 5 Specimen: 1. Pericardial fluid. 2. Anterior pericardium. Condition: stable Disposition: ICU Procedure in Detail: INDICATIONS FOR OPERATION: The patient is a 71 year old type II diabetic, hypertensive man with cardiomyopathy who was transferred to [facility] from [facility] with diagnosis of congestive heart failure. The patient has a history of congestive heart failure which she states dates back to the 1970s when he was in [place]. The patient did well until 2008 when he had an acute episode of acute CHF. He was treated medically and did fairly well until He states that the hypotension occurs each time he is sedated, occurring during his colonoscopy as well as a subsequent right hemicolectomy. During the last year he has had a gradual decline in his health and has been unable to ambulate without experiencing profound shortness of breath and dyspnea on exertion. He was found to have atrial fibrillation and underwent attempted MERLYN guided cardioversion in June 2016. During the sedation portion of the procedure the patient had hypotension and required aggressive resuscitation. Accordingly Subsequently he underwent LHC which showed nonobstructive CAD. He then underwent COMPLIANCE FIELD TECHNICIAN-D placement and states that he has done very well during the last month. He is able to ambulate without much difficulty and expresses no shortness of breath or dyspnea on exertion. [facility] and the patient was recommended for evaluation. An echocardiogram showed a large pericardial effusion without evidence of tamponade and his primary route sales driver at [facility] recommended that he be transferred to [facility] for further evaluation. I have been asked to evaluate the patient for possible subxiphoid pericardial window. FINDINGS AT OPERATION: The patient had approximately 1300 mL of bloody fluid within the pericardium. No other abnormalities were noted. A portion of the pericardial fluid was sent for chemistry (CBC, glucose, LDH, total protein), culture (aerobic, anaerobic, fungal, TB) , and cytology. A portion of the anterior pericardium was sent for permanent section. DESCRIPTION OF OPERATION: After obtaining informed consent from the patient, he was taken to the operative murmur suspected regional treatment study was induced. Patient's chest and upper abdomen were prepped and draped in a sterile fashion. A vertical incision was then made over the xiphoid process. This incision was continued through the skin and subcutaneous tissue to the xiphoid process. The xiphoid process was resected to facilitate access to the pericardium. The pericardial fat overlying the pericardium was reflected laterally using a combination of Metzenbaum scissors and electrocautery. The pericardium was identified and the heart motion was noted. A 15 blade was used to open the pericardium. Large amount of bloody fluid was released. A portion of the pericardial fluid was sent for chemistry, culture, and cytology. A total of 1300 mL of bloody fluid was removed. A large patch of anterior pericardium was resected and sent for permanent section. A 32 Fijian right angle chest tube was then placed along the diaphragm. The rectus abdominis fascia, subcutaneous tissue, and skin edges were reapproximated running Vicryl sutures. Steri-Strips and sterile dressings were applied. The patient was transferred to the ICU in satisfactory postoperative condition. There were no intraoperative complications, and the instrument, needle, and sponge count were correct operation.
[2016-08-19] MEDS ORDERED: *HR* Morphine 2 MG/ML SYRINGE IVP PRN ×2 (10:31)
[2016-08-19] MEDS ORDERED: 0.9 % Sodium Chloride 1,000 ML IVC SCH (10:45)
[2016-08-19 10:51] LABS: Basophils % 0.2 %; Eosinophils % 0.8 %; Hematocrit 39.5 % (37.5-50.1); Hemoglobin 12.1 g/dL (12.9-16.9); Immature Granulocytes % 0.6 % (0-4); Lymphocytes # 1.9 K/mcL (0.6-4.6); Lymphocytes % 37.4 %; Mean Corpuscular HGB Conc 30.6 g/dL (31.6-35.5); Mean Corpuscular Hemoglobin 25.6 pg (28.0-33.3); Mean Corpuscular Volume 83.5 fL (83.0-100.0); Mean Platelet Volume 9.3 fL (9.4-12.4); Monocytes # 0.4 K/mcL (0.0-1.3); Neutrophils # 2.8 K/mcL (1.6-8.9); Platelet Count 131 K/mcL (140-400); Red Blood Count 4.73 M/mcL (4.19-5.50)
[2016-08-19] MEDS: Albuterol 2.5 MG/3 ML NEBULIZER IH SCH ×4 (11:08→23:20)
[2016-08-19] MEDS: *HR* OxyCODONE/APAP 5/325 TABLET PO PRN ×2 (13:03→17:15)
[2016-08-19] MEDS: Insulin LISPRO 300 UNITS/3 ML VIAL SQ SCH ×2 (13:03→17:08)
--- NOTE | 2016-08-19 13:06 | Internal Med Progress Note ---
<Carlene Petersen - Last Filed: 08/19/16 13:00> Date of Encounter: 08/19/16 Time of Encounter: 14:00 - Assessment and plan (1) Pericardial effusion Current Visit: Yes Status: Acute Assessment and plan: patient was sent from [place] due to concern of large pericardial effusion that was found on Echo. Etiology of pericardial effusion unclear at this time. Echocardiogram on 08/18 shows moderate to large pericardial effusion which is most prominent posterior and laterally, no definite evidence of tamponade, blood pressure normal, no RA collapse, RV does not appear to collapse but cavity was small and underfilled. prior echo on 08/15 showed LVEF 25-30, moderately dilated LV, severe global LV systolic dysfunction, mild concentric LVH, indeterminate diastolic function, no pulm HTN, large pericardial effusion, no echocardiogenic evidence of tamponade. patient is s/p subxiphoid pericardial window today, currently in ICU. had 1300ml fluid within pericardium, no other abnormalities were noted. pericardial fluid sent for chemistry (cbc, glucose, LDH, total protein), culture, and cytology. Portion of anterior pericardium sent for analysis. Patient tolerated the procedure well and had no complications. Patient has 32 Greek right angle chest tube placed along diaphragm- management per CT surgery. (2) NICM (nonischemic cardiomyopathy) Current Visit: Yes Status: Acute Assessment and plan: non ischemic cardiomyopathy of unknown etiology. Patient states he had this since [place]. currently holding ACEI and BB, resume per CT surgery. Furosemide 60mg PO daily. (3) Cardiac resynchronization therapy defibrillator (AGRONOMY INSTRUCTOR-D) in place Current Visit: Yes Status: Acute Assessment and plan: patient had [employer] AGRONOMY INSTRUCTOR-D placed in June. Recent interrogation revealed no significant findings. (4) Atrial fibrillation Current Visit: Yes Status: Acute Assessment and plan: Patient had cardiac catheterization on 06/27 with no stents placed at that time. Was found to be in Afib. MERLYN guided electrical cardioversion was performed, at that point he suffered a cardiac arrest, and was successfully resuscitated, then had defibrillator in place. Patient on Eliquis at home, which was held in anticipation for pericardial window today per CT surgery. Patient on heparin drip currently. Plan: re start Eliquis when ok with CT surgery. Qualifiers: Atrial fibrillation type: unspecified Qualified Code(s): I48.91 - Unspecified atrial fibrillation (5) Renal insufficiency Current Visit: Yes Status: Acute Assessment and plan: baseline Cr around 1.3, 1.51 today. Avoid nephrotoxic agents will continue to monitor. hold home dose Ramipril. Plan: gentle hydration with IVF 50ml/hr (6) DVT prophylaxis Current Visit: Yes Status: Acute Assessment and plan: EPCD - Subjective Interval history: 71 year old male evaluated at bedside. Patient denies nausea, vomiting, diarrhea , fever, chills. He is s/p subxiphoid pericardial window today with 1300ml fluid removed and sent for cytology, culture, and biopsy of pericardium sent for analysis. Patient appears to be doing well post op. - Constitutional Vitals: Temp Pulse Resp BP Pulse Ox 97.0 F L 79 16 136/78 88 08/19/16 10:30 08/19/16 11:15 08/19/16 11:15 08/19/16 11:15 08/19/16 11:15 General appearance: Present: A&O X 3, pleasant, no acute distress, obese, answers questions appropriately - Head Head exam: Present: atraumatic, normocephalic - Respiratory Additional comments: right lower lobe rales present. - Cardiovascular Cardiovascular exam: Present: RRR, +S1, +S2 Additional comments: chest tube in place, sub xiphoid pericardial window - GI/Abdominal GI/Abdominal exam: Present: normal bowel sounds, tenderness (tenderness at site of pericardial window. ), no peritoneal signs - Extremities Exam Extremities exam: Absent: cyanotic, pedal edema - Neurological Exam Neurological exam: Present: alert, oriented X3, no focal deficits - Psychiatric Psychiatric exam: Present: normal affect, normal mood Internal Medicine: Result - Labs CBC & Chem 7: 08/19/16 10:43 08/19/16 01:00 Labs: Short CBC 08/19/16 08/19/16 Range/Units 01:00 10:43 WBC 5.1 5.1 (4.3-11.1) K/mcL Hgb 11.6 L 12.1 L (12.9-16.9) g/dL Hct 36.9 L 39.5 (37.5-50.1) % Plt Count 150 131 L (140-400) K/mcL Neutrophils # 3.2 2.8 (1.6-8.9) K/mcL BMP 08/19/16 01:00 Sodium 139 Potassium 4.6 H Chloride 99 Carbon Dioxide 32 H BUN 35 H Creatinine 1.51 H Glucose 214 H Calcium 9.7 Liver Function 08/19/16 Range/Units 01:00 Total Bilirubin 0.6 (0.2-1.2) mg/dL AST 19 (5-34) Units/L ALT 17 (0-55) Units/L Alkaline Phosphatase 73 (38-126) Units/L Albumin 3.1 L (3.5-5.0) g/dL - ABG Interpretation ABG results: PT/INR, D-dimer PT 14.7 Seconds (9.4-12.1) H 08/17/16 10:23 - Impressions Impressions Chest X-Ray 08/19/16 10:31 IMPRESSION: Interval decrease in size of cardiac silhouette. No discrete pneumothorax. D/ / Christi Harris MD / Christi Harris MD Interpreting Provider: Christi Harris MD Consult Discharge Plan - Plan [facility]errals: [facility] [Primary Care Provider[facility] - <Fco Garrido A - Last Filed: 08/19/16 18:30> Date of Encounter: 08/19/16 - Assessment and plan (1) Pericardial effusion Current Visit: Yes Status: Acute (2) Atrial fibrillation Current Visit: Yes Status: Acute Qualifiers: Atrial fibrillation type: persistent Qualified Code(s): I48.1 - Persistent atrial fibrillation (3) Cardiac resynchronization therapy defibrillator (AGRONOMY INSTRUCTOR-D) in place Current Visit: Yes Status: Acute (4) NICM (nonischemic cardiomyopathy) Current Visit: Yes Status: Acute - Constitutional Vitals: Temp Pulse Resp BP Pulse Ox 98.0 F 80 16 116/64 94 08/19/16 16:00 08/19/16 16:00 08/19/16 16:00 08/19/16 16:00 08/19/16 16:00 Internal Medicine: Result - Labs CBC & Chem 7: 08/19/16 10:43 08/19/16 01:00 Labs: Short CBC 08/19/16 08/19/16 Range/Units 01:00 10:43 WBC 5.1 5.1 (4.3-11.1) K/mcL Hgb 11.6 L 12.1 L (12.9-16.9) g/dL Hct 36.9 L 39.5 (37.5-50.1) % Plt Count 150 131 L (140-400) K/mcL Neutrophils # 3.2 2.8 (1.6-8.9) K/mcL BMP 08/19/16 01:00 Sodium 139 Potassium 4.6 H Chloride 99 Carbon Dioxide 32 H BUN 35 H Creatinine 1.51 H Glucose 214 H Calcium 9.7 Liver Function 08/19/16 Range/Units 01:00 Total Bilirubin 0.6 (0.2-1.2) mg/dL AST 19 (5-34) Units/L ALT 17 (0-55) Units/L Alkaline Phosphatase 73 (38-126) Units/L Albumin 3.1 L (3.5-5.0) g/dL - ABG Interpretation ABG results: PT/INR, D-dimer PT 14.7 Seconds (9.4-12.1) H 08/17/16 10:23 - Impressions Impressions Chest X-Ray 08/19/16 10:31 IMPRESSION: Interval decrease in size of cardiac silhouette. No discrete pneumothorax. D/ / Christi Harris MD / Christi Harris MD Interpreting Provider: Christi Harris MD - Attending Attestation I examined this patient and my medical decision-making was reviewed with the Resident Physician on 08/19/16. I agree with the documented findings, disposition and treatment plan as described except to the extent set forth below. Mr. Thomson is currently admitted for acute pericardial effusion s/p window today. He remains moderate to high risk due to potential for worsening cardiac status. Mr. Thomson had pericardial window today. Now in ICU. No fever or chills. Exam Alert. Comfortable Heart reg No wheeze Chest tube in place. I/P 1. Acute pericardial effusion 2. Chronic atrial fibrillation - currently anticoagulant on hold 3. NICM Further diagnoses and plan as above.
[2016-08-19 15:05] LABS: Appearance of Pericardial Fl Bloody (Clear)
[2016-08-19 15:11] LABS: Glucose,Pericardial Fluid 140 mg/dL (No Ref Range)
[2016-08-19] MEDS ORDERED: Insulin LISPRO 300 UNITS/3 ML VIAL SQ SCH (15:25)
[2016-08-19] MEDS: Chlorhexidine Rinse 15 ML MOUTHWASH MM SCH (17:07)
[2016-08-19] MEDS: Gabapentin 300 MG CAPSULE PO SCH ×3 (17:17→21:00)
[2016-08-19] MEDS: ceFAZolin 2,000 MG in D5% in Water 100 ML IVPB SCH (17:19)
[2016-08-19] MEDS: Aspirin 81 MG TAB.CHEW PO SCH (17:20)
[2016-08-19] MEDS: Cholecalciferol (D-3) 1,000 UNIT TABLET PO SCH (17:20)
[2016-08-19] MEDS: Spironolactone 25 MG TABLET PO SCH (17:20)
[2016-08-19] MEDS: Insulin DETEMIR 100 UNIT/ML X5UNITS SQ SCH (20:15)
[2016-08-20] MEDS: *HR* OxyCODONE/APAP 5/325 TABLET PO PRN ×3 (00:30→22:08)
[2016-08-20] MEDS: ceFAZolin 2,000 MG in D5% in Water 100 ML IVPB SCH (00:56)
[2016-08-20] MEDS: Albuterol 2.5 MG/3 ML NEBULIZER IH SCH ×6 (03:48→23:42)
[2016-08-20 04:38] LABS: Basophils % 0.1 %; Eosinophils % 0.1 %; Hematocrit 39.2 % (37.5-50.1); Hemoglobin 11.8 g/dL (12.9-16.9); Immature Granulocytes % 0.4 % (0-4); Lymphocytes # 1.1 K/mcL (0.6-4.6); Lymphocytes % 11.7 %; Mean Corpuscular HGB Conc 30.1 g/dL (31.6-35.5); Mean Corpuscular Hemoglobin 25.5 pg (28.0-33.3); Mean Corpuscular Volume 84.8 fL (83.0-100.0); Mean Platelet Volume 9.6 fL (9.4-12.4); Monocytes # 0.7 K/mcL (0.0-1.3); Monocytes % 7.7 %; Neutrophils # 7.4 K/mcL (1.6-8.9); Platelet Count 152 K/mcL (140-400); Red Blood Count 4.62 M/mcL (4.19-5.50); Red Cell Distribution Width 14.8 % (11.5-14.5)
[2016-08-20 04:59] LABS: Calcium 9.7 mg/dL (8.6-10.8); Potassium 5.1 mEq/L (3.5-4.5)
--- NOTE | 2016-08-20 08:50 | Cardiothoracic Progress Note ---
Date of Encounter: 08/20/16 Time of Encounter: 08:48 - Assessment and plan (1) Pericardial effusion Current Visit: Yes Status: Acute The assessment and plan as outlined above was discussed with the patient and/or family members who expressed understanding and agreement. All questions were answered. The patient is doing well. We will transfer him to the floor. We will leave his chest tubes for several days. We'll place him on Accu-Cheks with sliding scale coverage. We will follow his elevated creatinine. - Subjective Interval history: The patient has no complaints and feels much better. Vital Signs, Last 4 Hours Temp Pulse Resp BP Pulse Ox 08/20/16 08:13 98.0 F 08/20/16 07:34 16 97 08/20/16 06:00 80 16 116/63 96 08/20/16 05:00 80 18 117/63 98 08/20/16 04:52 98.1 F Oxgyen Flow Rate Oxygen Flow Rate (LPM) 3 Clinical Data, last 8 Hours Output, Chest Tube Drainage 10 Amount [Mediastinal] Output, Urine Amount 275 Output, Urine Amount 200 Output, Urine Amount 200 Weight 08/18/16 08/19/16 08/20/16 23:59 23:59 23:59 Weight 112.6 kg 105.823 kg Lungs are clear to percussion and auscultation. Heart is in a normal sinus rhythm. Chest tube drainage is minimal and there is no air leak. - Labs 08/20/16 04:25 08/20/16 04:25 Lab Results, Last 24 hours 08/19/16 08/20/16 08/20/16 10:43 04:25 04:25 WBC 5.1 9.3 D Hgb 12.1 L 11.8 L Hct 39.5 39.2 Plt Count 131 L 152 Sodium 139 Potassium 5.1 H Chloride 99 Carbon Dioxide 32 H BUN 29 H Creatinine 1.74 H Glucose 329 H Calcium 9.7 - VTE Documentation of Mechanical Device: Intermittent pneumatic compression device Consult Discharge Plan - Plan Referrals: [facility] [Primary Care Provider] -
[2016-08-20] MEDS: Insulin LISPRO 300 UNITS/3 ML VIAL SQ SCH ×4 (09:07→22:07)
[2016-08-20] MEDS: Spironolactone 25 MG TABLET PO SCH (09:10)
[2016-08-20] MEDS: Aspirin 81 MG TAB.CHEW PO SCH (09:11)
[2016-08-20] MEDS: Cholecalciferol (D-3) 1,000 UNIT TABLET PO SCH (09:11)
[2016-08-20] MEDS: Gabapentin 300 MG CAPSULE PO SCH ×3 (09:11→22:08)
[2016-08-20] MEDS ORDERED: Spironolactone 25 MG TABLET PO SCH (10:56)
[2016-08-20] MEDS ORDERED: Ibuprofen 400 MG TABLET PO PRN (10:56)
[2016-08-20] MEDS ORDERED: Ondansetron ODT 4 MG TAB.RAPDIS SL PRN (10:56)
[2016-08-20] MEDS ORDERED: Sennosides/Docusate Sodium TABLET PO PRN (10:56)
[2016-08-20] MEDS ORDERED: Acetaminophen 325 MG TABLET PO PRN (10:56)
[2016-08-20] MEDS ORDERED: Naloxone 0.4 MG/ML INJ IVP PRN (10:56)
[2016-08-20] MEDS ORDERED: D5% in Water 1,000 ML IVC PRN (10:56)
[2016-08-20] MEDS ORDERED: *HR* Morphine 2 MG/ML SYRINGE IVP PRN (10:56)
[2016-08-20] MEDS ORDERED: *HR* Dextrose 50 % in Water (Syg) 50 ML SYRINGE IVP PRN (10:56)
[2016-08-20] MEDS ORDERED: Dextrose Gel 15 GM PO PRN ×2 (10:56)
[2016-08-20] MEDS ORDERED: Methocarbamol 500 MG TABLET PO PRN (10:56)
[2016-08-20] MEDS: Metoprolol XL (24 HR) Succ 50 MG TAB.ER.24H PO SCH (13:01)
[2016-08-20] MEDS: *HR* GlipiZIDE 5 MG TABLET PO SCH ×2 (13:01→22:08)
--- NOTE | 2016-08-20 13:54 | Internal Med Progress Note ---
Date of Encounter: 08/20/16 Time of Encounter: 12:00 - Assessment and plan (1) Pericardial effusion Current Visit: Yes Status: Acute Assessment and plan: Status post pericardial window with chest tube in place. Cardiothoracic surgery managing this. (2) NICM (nonischemic cardiomyopathy) Current Visit: Yes Status: Acute Assessment and plan: Resume Toprol, aspirin and statin. Holding off diuretics for now due to worsening renal function (3) Cardiac resynchronization therapy defibrillator (MARKET MANAGER-D) in place Current Visit: Yes Status: Chronic (4) Atrial fibrillation Current Visit: Yes Status: Acute Assessment and plan: Holding Eliquis per cardiothoracic surgery recommendation. Plan to resume tomorrow. Heart rate is well controlled. Qualifiers: Atrial fibrillation type: paroxysmal Qualified Code(s): I48.0 - Paroxysmal atrial fibrillation (5) DVT prophylaxis Current Visit: Yes Status: Acute (6) Renal insufficiency Current Visit: Yes Status: Acute Assessment and plan: Renal function worsening. Will follow renal function closely. Stop Aldactone for now. Also stop ibuprofen. (7) Chronic combined systolic (congestive) and diastolic (congestive) heart failure Current Visit: Yes Status: Chronic Assessment and plan: Holding diuretics for now. Continue aspirin and beta marianna and statin. - Subjective Interval history: Patient is awake and alert and sitting up in chair. Denies any complaints at this time. Mild tenderness at the site of drain. Otherwise doing well. No shortness of breath. - Constitutional Vitals: Temp Pulse Resp BP Pulse Ox 98.0 F 80 16 114/66 96 08/20/16 08:13 08/20/16 13:06 08/20/16 11:18 08/20/16 10:00 08/20/16 11:18 General appearance: Present: A&O X 3, pleasant, no acute distress, obese, answers questions appropriately - Respiratory Respiratory exam: Present: CTAB. Absent: accessory muscle use, rales, rhonchi, wheezes - Cardiovascular Cardiovascular exam: Present: RRR, +S1, +S2. Absent: diastolic murmur, gallop, rubs, systolic murmur Additional comments: Pericardial window drain in place - GI/Abdominal GI/Abdominal exam: Present: normal bowel sounds, soft, no peritoneal signs. Absent: distended, tenderness - Extremities Exam Extremities exam: Present: warm, radial pulses palpable and symetrical. Absent : calf tenderness, cyanotic, pedal edema - Neurological Exam Neurological exam: Present: CN II-XII intact, oriented X3, no focal deficits. Absent: facial droop, speech deficit Internal Medicine: Result - Labs CBC & Chem 7: 08/20/16 04:25 08/20/16 04:25 Labs: Short CBC 08/20/16 Range/Units 04:25 WBC 9.3 D (4.3-11.1) K/mcL Hgb 11.8 L (12.9-16.9) g/dL Hct 39.2 (37.5-50.1) % Plt Count 152 (140-400) K/mcL Neutrophils # 7.4 (1.6-8.9) K/mcL BMP 08/20/16 04:25 Sodium 139 Potassium 5.1 H Chloride 99 Carbon Dioxide 32 H BUN 29 H Creatinine 1.74 H Glucose 329 H Calcium 9.7 - ABG Interpretation ABG results: PT/INR, D-dimer PT 14.7 Seconds (9.4-12.1) H 08/17/16 10:23 - Impressions Impressions Chest X-Ray 08/20/16 06:00 IMPRESSION: No pneumothorax. Mild atelectasis in the left lung base. Stable enlargement of the cardiac silhouette, consistent with cardiomegaly. D/ / Maurice Ponce MD / Maurice Ponce MD Interpreting Provider: Maurice Ponce MD - VTE Documentation of Mechanical Device: Intermittent pneumatic compression device Consult Discharge Plan - Plan Referrals: Aleksandr Suarez MD [Partnered Physician] - 09/18/16 1:20 pm [place],PCP [Primary Care Provider] - 09/03/16 1:30 pm - Attending Attestation This document has been at least partially created by [employer] recognition technology by Dr. Mcgill. Errors in grammar, wording or other phrases may exist. If errors are found after the documentation is signed, they will be addressed individually in the addendum section of this document when appropriate.
[2016-08-20] MEDS ORDERED: Insulin DETEMIR 100 UNIT/ML X5UNITS SQ SCH (21:00)
[2016-08-21 01:23] LABS: Basophils % 0.1 %; Eosinophils # 0.1 K/mcL (0.0-0.6); Eosinophils % 0.9 %; Hematocrit 36.9 % (37.5-50.1); Hemoglobin 11.2 g/dL (12.9-16.9); Immature Granulocytes % 0.4 % (0-4); Lymphocytes # 1.4 K/mcL (0.6-4.6); Lymphocytes % 17.5 %; Mean Corpuscular HGB Conc 30.4 g/dL (31.6-35.5); Mean Corpuscular Hemoglobin 25.8 pg (28.0-33.3); Mean Platelet Volume 9.9 fL (9.4-12.4); Monocytes # 0.7 K/mcL (0.0-1.3); Monocytes % 9.3 %; Neutrophils # 5.6 K/mcL (1.6-8.9); Platelet Count 127 K/mcL (140-400); Red Blood Count 4.34 M/mcL (4.19-5.50); Red Cell Distribution Width 14.9 % (11.5-14.5); Segmented Neutrophils % 71.8 %
[2016-08-21 02:03] LABS: Calcium 9.4 mg/dL (8.6-10.8); Potassium 4.8 mEq/L (3.5-4.5)
[2016-08-21] MEDS: Albuterol 2.5 MG/3 ML NEBULIZER IH SCH ×5 (03:34→20:19)
[2016-08-21] MEDS: Aspirin 81 MG TAB.CHEW PO SCH (08:15)
[2016-08-21] MEDS: *HR* GlipiZIDE 5 MG TABLET PO SCH ×2 (08:15→20:57)
[2016-08-21] MEDS: Cholecalciferol (D-3) 1,000 UNIT TABLET PO SCH (08:16)
[2016-08-21] MEDS: Metoprolol XL (24 HR) Succ 50 MG TAB.ER.24H PO SCH (08:16)
[2016-08-21] MEDS: Gabapentin 300 MG CAPSULE PO SCH ×3 (08:17→20:57)
[2016-08-21] MEDS: Insulin LISPRO 300 UNITS/3 ML VIAL SQ SCH ×4 (08:18→20:56)
--- NOTE | 2016-08-21 08:24 | Cardiothoracic Progress Note ---
Date of Encounter: 08/21/16 Time of Encounter: 08:22 - Assessment and plan (1) Pericardial effusion Current Visit: Yes Status: Acute I plan to remove the chest tube tomorrow. Hopefully, the patient can be discharged tomorrow or Thursday. - Subjective Interval history: The patient has no complaints. Vital Signs, Last 4 Hours Temp Pulse Resp BP Pulse Ox 08/21/16 07:36 18 94 08/21/16 07:34 98.4 F 80 18 115/72 95 Oxgyen Flow Rate Oxygen Flow Rate (LPM) 2 Clinical Data, last 8 Hours Output, Urine Amount 400 Weight 08/19/16 08/20/16 08/21/16 23:59 23:59 23:59 Weight 105.823 kg 115.9 kg Lungs are clear to percussion and auscultation. Heart is in a paced rhythm. The incision is healing well without signs of infection. Chest tube drainage is minimal. - Labs 08/21/16 01:12 08/21/16 01:12 Lab Results, Last 24 hours 08/21/16 08/21/16 01:12 01:12 WBC 7.8 Hgb 11.2 L Hct 36.9 L Plt Count 127 L Sodium 137 Potassium 4.8 H Chloride 99 Carbon Dioxide 32 H BUN 32 H Creatinine 1.43 H Glucose 215 H Calcium 9.4 - VTE Documentation of Mechanical Device: Intermittent pneumatic compression device Consult Discharge Plan - Plan Referrals: Aleksandr Suarez MD [Partnered Physician] - 09/18/16 1:20 pm [place],PCP [Primary Care Provider] - 09/03/16 1:30 pm
[2016-08-21] MEDS ORDERED: Spironolactone 25 MG TABLET PO SCH (09:00)
--- NOTE | 2016-08-21 12:36 | Internal Med Progress Note ---
Date of Encounter: 08/21/16 Time of Encounter: 09:30 - Assessment and plan (1) Pericardial effusion Current Visit: Yes Status: Acute Assessment and plan: Status post epicardial window. Doing well overall. Cardiothoracic surgery managing chest tube. (2) NICM (nonischemic cardiomyopathy) Current Visit: Yes Status: Acute Assessment and plan: No acute issues at this time. Patient doing well overall. (3) Cardiac resynchronization therapy defibrillator (BUTT TRIMMER-D) in place Current Visit: Yes Status: Chronic (4) Atrial fibrillation Current Visit: Yes Status: Chronic Assessment and plan: Sinus rhythm. Restart Eliquis. Qualifiers: Atrial fibrillation type: paroxysmal Qualified Code(s): I48.0 - Paroxysmal atrial fibrillation (5) DVT prophylaxis Current Visit: Yes Status: Acute (6) Renal insufficiency Current Visit: Yes Status: Acute Assessment and plan: Renal function improving. (7) Chronic combined systolic (congestive) and diastolic (congestive) heart failure Current Visit: Yes Status: Chronic Assessment and plan: No acute exacerbation. (8) Diabetes mellitus, type 2 Current Visit: Yes Status: Acute Assessment and plan: Blood sugars remain elevated but improving. On Levemir and sliding scale insulin. We will continue to monitor for now and adjust accordingly. Qualifiers: Diabetes mellitus complication status: with kidney complications Diabetes mellitus complication detail: with chronic kidney disease Diabetes mellitus terminologist insulin use: with fdc use Chronic kidney disease stage: stage 3 (moderate) Qualified Code(s): E11.22 - Type 2 diabetes mellitus with diabetic chronic kidney disease; N18.3 - Chronic kidney disease, stage 3 ( moderate); Z79.4 - [facility] (current) use of insulin - Subjective Interval history: No new complaints at this time. Patient has mild pain at site of insertion of chest tube. Otherwise, no fever or chills. No shortness of breath. No palpitations. - Constitutional Vitals: Temp Pulse Resp BP Pulse Ox 98.6 F 80 24 122/86 96 08/21/16 11:29 08/21/16 11:29 08/21/16 11:35 08/21/16 11:29 08/21/16 11:35 General appearance: Present: A&O X 3, pleasant, no acute distress, obese, answers questions appropriately - Respiratory Respiratory exam: Present: CTAB. Absent: accessory muscle use, rales, rhonchi, wheezes - Cardiovascular Cardiovascular exam: Present: RRR, +S1, +S2. Absent: diastolic murmur, gallop, rubs, systolic murmur Additional comments: Chest tube in place - GI/Abdominal GI/Abdominal exam: Present: normal bowel sounds, soft, no peritoneal signs. Absent: distended, tenderness - Extremities Exam Extremities exam: Present: warm, radial pulses palpable and symetrical. Absent : calf tenderness, cyanotic, pedal edema - Neurological Exam Neurological exam: Present: CN II-XII intact, oriented X3, no focal deficits. Absent: facial droop, speech deficit - Skin Skin exam: Present: dry, intact Internal Medicine: Result - Labs CBC & Chem 7: 08/21/16 01:12 08/21/16 01:12 Labs: Short CBC 08/21/16 Range/Units 01:12 WBC 7.8 (4.3-11.1) K/mcL Hgb 11.2 L (12.9-16.9) g/dL Hct 36.9 L (37.5-50.1) % Plt Count 127 L (140-400) K/mcL Neutrophils # 5.6 (1.6-8.9) K/mcL BMP 08/21/16 01:12 Sodium 137 Potassium 4.8 H Chloride 99 Carbon Dioxide 32 H BUN 32 H Creatinine 1.43 H Glucose 215 H Calcium 9.4 - ABG Interpretation ABG results: PT/INR, D-dimer PT 14.7 Seconds (9.4-12.1) H 08/17/16 10:23 - VTE Documentation of Mechanical Device: Intermittent pneumatic compression device Consult Discharge Plan - Plan Referrals: Aleksandr Suarez MD [Partnered Physician] - 09/18/16 1:20 pm [place],PCP [Primary Care Provider] - 09/03/16 1:30 pm - Attending Attestation This document has been at least partially created by [employer] recognition technology by Dr. Mcgill. Errors in grammar, wording or other phrases may exist. If errors are found after the documentation is signed, they will be addressed individually in the addendum section of this document when appropriate.
[2016-08-21] MEDS ORDERED: Insulin DETEMIR 100 UNIT/ML X5UNITS SQ SCH (12:48)
[2016-08-21] MEDS: *HR* OxyCODONE/APAP 5/325 TABLET PO PRN (15:15)
[2016-08-21] MEDS: APIXABAN 5 MG TABLET PO SCH (20:57)
[2016-08-22] MEDS: Albuterol 2.5 MG/3 ML NEBULIZER IH SCH ×3 (00:01→08:13)
[2016-08-22 04:35] LABS: Basophils % 0.2 %; Eosinophils # 0.1 K/mcL (0.0-0.6); Eosinophils % 0.9 %; Hematocrit 35.9 % (37.5-50.1); Hemoglobin 10.9 g/dL (12.9-16.9); Immature Granulocytes % 0.8 % (0-4); Lymphocytes # 1.2 K/mcL (0.6-4.6); Lymphocytes % 18.8 %; Mean Corpuscular HGB Conc 30.4 g/dL (31.6-35.5); Mean Corpuscular Hemoglobin 25.8 pg (28.0-33.3); Mean Corpuscular Volume 85.1 fL (83.0-100.0); Monocytes # 0.7 K/mcL (0.0-1.3); Monocytes % 10.4 %; Neutrophils # 4.5 K/mcL (1.6-8.9); Platelet Count 136 K/mcL (140-400); Red Blood Count 4.22 M/mcL (4.19-5.50); Segmented Neutrophils % 68.9 %
[2016-08-22 04:56] LABS: BUN/Creatinine Ratio 19 (6-26); Calcium 9.6 mg/dL (8.6-10.8); Carbon Dioxide 33 mEq/L (19-29); Chloride 102 mEq/L (98-109); Glucose 103 mg/dL (70-99); Osmolality,Calculated 293 (280-300); Sodium 140 mEq/L (136-145); eGFR For African Americans > 60 (> 60); eGFR For Non-African Americans > 60 (> 60)
[2016-08-22 05:03] LABS: Blood Urea Nitrogen 21 mg/dL (8-26); Potassium 4.6 mEq/L (3.5-4.5)
--- NOTE | 2016-08-22 07:17 | Cardiothoracic Progress Note ---
Date of Encounter: 08/22/16 Time of Encounter: 07:16 - Assessment and plan (1) Pericardial effusion Current Visit: Yes Status: Acute The chest tube was removed. The patient is okay for discharge from my standpoint. He should see Dr. Suarez in the office in 4 weeks for a check. - Subjective Interval history: The patient has no complaints. Vital Signs, Last 4 Hours Temp Pulse Resp BP Pulse Ox 08/22/16 04:20 98.3 F 80 17 116/71 97 08/22/16 04:13 18 96 Oxgyen Flow Rate Oxygen Flow Rate (LPM) 2 Clinical Data, last 8 Hours Output, Chest Tube Drainage 0 Amount [Mediastinal] Output, Chest Tube Drainage 0 Amount [Mediastinal] Output, Urine Amount 550 Output, Urine Amount 600 Weight 08/20/16 08/21/16 08/22/16 23:59 23:59 23:59 Weight 105.823 kg 115.9 kg 113.6 kg Lungs are clear to percussion and auscultation. Heart is in a paced rhythm. The incision is healing well without signs of infection. Chest tube drainage is minimal and there is no air leak. - Labs 08/22/16 04:20 08/22/16 04:20 Lab Results, Last 24 hours 08/22/16 08/22/16 04:20 04:20 WBC 6.6 Hgb 10.9 L Hct 35.9 L Plt Count 136 L Sodium 140 Potassium 4.6 H Chloride 102 Carbon Dioxide 33 H BUN 21 D Creatinine 1.08 Glucose 103 H Calcium 9.6 - VTE Documentation of Mechanical Device: Intermittent pneumatic compression device Consult Discharge Plan - Plan Referrals: Aleksandr Suarez MD [Partnered Physician] - 09/18/16 1:20 pm [place],PCP [Primary Care Provider] - 09/03/16 1:30 pm
[2016-08-22 07:44] VITALS: BP 113/71
--- NOTE | 2016-08-22 08:25 | Discharge Summary ---
Date of Encounter: 08/22/16 Time of Encounter: 08:00 - Discharge Diagnosis (1) Pericardial effusion Priority: Primary Status: Acute (2) NICM (nonischemic cardiomyopathy) Priority: Secondary Status: Acute (3) Cardiac resynchronization therapy defibrillator (INSURANCE SPECIAL AGENT-D) in place Priority: Secondary Status: Chronic (4) Atrial fibrillation Priority: Secondary Status: Chronic Qualifiers: Atrial fibrillation type: paroxysmal Qualified Code(s): I48.0 - Paroxysmal atrial fibrillation (5) DVT prophylaxis Priority: Secondary Status: Acute (6) Renal insufficiency Priority: Secondary Status: Acute (7) Chronic combined systolic (congestive) and diastolic (congestive) heart failure Priority: Secondary Status: Chronic (8) Diabetes mellitus, type 2 Priority: Secondary Status: Acute Qualifiers: Diabetes mellitus complication status: with kidney complications Diabetes mellitus complication detail: with chronic kidney disease Diabetes mellitus fpc insulin use: with fpc use Chronic kidney disease stage: stage 3 (moderate) Qualified Code(s): E11.22 - Type 2 diabetes mellitus with diabetic chronic kidney disease; N18.3 - Chronic kidney disease, stage 3 ( moderate); 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 - Discharge Medications Home Medications: Apixaban [Eliquis] 5 mg PO BID 08/15/16 [History] Carbamide Peroxide [Ear Wax Drops] 4 drop BOTH EARS DAILY 08/15/16 [History] Cholecalciferol (D-3) [Vitamin D] 1,000 unit PO DAILY 08/15/16 [History] Furosemide [Lasix] 60 mg PO DAILY 08/15/16 [History] Gabapentin [Neurontin] 300 mg PO TID 08/15/16 [History] GlipiZIDE [Glipizide] 10 mg PO BID 08/15/16 [History] Insulin Glargine,Hum.rec.anlog [Lantus Solostar] 15 unit SQ HS 08/15/16 [History ] Metformin HCl [Glucophage] 1,000 mg PO BID 08/15/16 [History] Methocarbamol [Robaxin] 500 mg PO QID PRN 08/15/16 [History] Metoprolol XL (24 HR) Succ [Toprol Xl] 25 mg PO DAILY 08/15/16 [History] Mineral Oil/Petrolatum,White [Eucerin Creme] 1 appl TP BID PRN 08/15/16 [History ] Ramipril [Altace] 5 mg PO DAILY 08/15/16 [History] Rosuvastatin [Crestor] 10 mg PO HS 08/15/16 [History] Spironolactone [Aldactone] 25 mg PO DAILY 08/15/16 [History] Allergies/Adverse Reactions: Allergies No Known Allergies Allergy (Verified 08/15/16 15:08) Date of admission: 08/16/16 09:50 [facility] care physician: [facility] Consults: 08/15/16 17:42 Consult to Cardiology [CONS] Routine Comment: Consulting Provider: Cardiology Lesley Reason for Consult: pericardial effusion Time Notified: 17:42 Call Completed: Yes 08/16/16 09:15 Consult to Cardiothoracic Surgery [CONS] Routine Consulting Provider: Cardiothoracic Surgery Lesley Reason for Consult: Large pericardial effusion Time Notified: 09:00 Call Completed: Yes Discharging clinician: Elvia Mcgill Anticipated date of discharge: 08/22/16 - Patient Status Disposition: Home, Self-Care Condition: Good Functional capacity at discharge: independent ambulation Overall status at discharge: patient is back to baseline - Discharge Instructions Follow Up With: Aleksandr Suarez MD [Partnered Physician] - 09/18/16 1:20 pm [facility],PCP [Primary Care Provider] - 09/03/16 1:30 pm - Diet and Activity Activity: increase activity as tolerated Diet: advance to your usual diet, diabetic diet, low fat, low cholesterol, low salt diet Hospital course: Mr. Thomson is a 71 year old male with history of nonischemic cardiomyopathy, atrial fibrillation with anticoagulation on Eliquis, with 3 stents cardiac resynchronization therapy device placement was admitted here after he presented to the ER with increasing weight gain. Echocardiogram done showed large pericardial effusion. Patient was evaluated by cardiology and cardiothoracic surgery. He also has a history of hypertension and diabetes. Per cardiothoracic surgery recommendations, patient underwent treatment with subxiphoid pericardial window and removal of about 1300 mL of bloody fluid. Recent has been doing well post surgery and has had a total of 750 mL chest tube drainage since then. This has now subsided. And chest tube has been removed this morning but Dr. Arango the cardiothoracic surgeon. He is doing well now and is stable to be discharged home from a cardiac thoracic surgery standpoint. He will follow up with them in 4 weeks. He has now been restarted on Eliquis. He did develop renal insufficiency his Lasix was held. His renal function has now normalized and he can resume his Lasix and spironolactone. - Time Spent with Patient Total time spent providing and/or coordinating discharge services: Greater than 30 minutes (35 min) - Constitutional Vitals: Temp Pulse Resp BP Pulse Ox 98.2 F 80 18 113/71 94 08/22/16 07:41 08/22/16 07:41 08/22/16 07:41 08/22/16 07:41 08/22/16 07:41 General appearance: Present: A&O X 3, pleasant, no acute distress, obese, answers questions appropriately - Respiratory Respiratory exam: Present: CTAB. Absent: accessory muscle use, rales, rhonchi, wheezes - Cardiovascular Cardiovascular exam: Present: RRR, +S1, +S2. Absent: diastolic murmur, gallop, rubs, systolic murmur - GI/Abdominal GI/Abdominal exam: Present: normal bowel sounds, soft, no peritoneal signs. Absent: distended, tenderness - Extremities Exam Extremities exam: Present: warm, radial pulses palpable and symetrical. Absent : calf tenderness, cyanotic, pedal edema - VTE Documentation of Mechanical Device: Intermittent pneumatic compression device - Attending Attestation This document has been at least partially created by [email or web address] recognition technology by Dr. Mcgill. Errors in grammar, wording or other phrases may exist. If errors are found after the documentation is signed, they will be addressed individually in the addendum section of this document when appropriate.
[2016-08-22] MEDS: Insulin LISPRO 300 UNITS/3 ML VIAL SQ SCH (09:48)
[2016-08-22] MEDS: APIXABAN 5 MG TABLET PO SCH (09:50)
[2016-08-22] MEDS: *HR* GlipiZIDE 5 MG TABLET PO SCH (09:50)
[2016-08-22] MEDS: Aspirin 81 MG TAB.CHEW PO SCH (09:51)
[2016-08-22] MEDS: Cholecalciferol (D-3) 1,000 UNIT TABLET PO SCH (09:51)
[2016-08-22] MEDS: Gabapentin 300 MG CAPSULE PO SCH (09:51)
[2016-08-22] MEDS: Metoprolol XL (24 HR) Succ 50 MG TAB.ER.24H PO SCH (09:52)
== END 2016-08-22 10:52 | disposition home or self-care (01) | DRG 271 ==
LOC: 2NENU 14:57 → EMEROO 14:57 → 2NENU 20:11 → SUATTDRO 08-16 09:50 → ICNU 08-19 10:31 → 2NNU 08-20 12:45
PROVIDERS: ADMIT Nurse Practitioner Acute Care; ATTEND Internal Medicine